=== PATIENT | male | born 1945 | race Caucasian/White ===

== ENCOUNTER 2016-10-15 22:18 | Emergency (ER) | payer MEDICARE, OTHER ==
[~2016-10-15] VITALS: Ht 172.7 cm; Wt 79.0 kg
[2016-10-15 22:20] VITALS: BP 101/59; PULSE 78; RESP 16; TEMP 97.9; O2SAT 94
[2016-10-15] MEDS ORDERED: WARF-58 PO (22:39)
[2016-10-15] MEDS ORDERED: VITA-83 PO (22:39)
[2016-10-15] MEDS ORDERED: BACL10TA PO (22:39)
[2016-10-15] MEDS ORDERED: FURO1TAB60 PO (22:39)
[2016-10-15] MEDS ORDERED: RANI150T PO (22:39)
[2016-10-15] MEDS ORDERED: WARF-60 PO (22:39)
[2016-10-15] MEDS ORDERED: POTA75TA (22:39)
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
[2016-10-15 23:24] LABS: BACTERIA, URINE OCC /hpf; BLOOD, URINE TRACE (NEG); GLUCOSE,URINE NEG (NEG); KETONE, URINE NEG (NEG); MUCUS URINE FEW /lpf (OCC); NITRITE,URINE NEG (NEG); RENAL EPITHELIAL CELLS 1 /hpf; URINE COLOR YELLOW (YELLW/STRAW)
[2016-10-15 23:27] LABS: COMMENT (UR) CATH-CULTURE IND; CULTURE IF INDICATED CATH CULTURE IND
[2016-10-15] MEDS ORDERED: MACR100C2 PO (23:36)
--- NOTE | 2016-10-15 23:39 | PD ---
Physical Exam Date Seen by Provider: Oct 15, 2016 Time Seen by Provider: 23:00 Narrative The patient was initially seen by KEMAL Franklin. The patient had a catheter that was leaking. We did replace the catheter and we're awaiting urinalysis. Data Data Last Documented VS Vital Signs Date Time Temp Pulse Resp B/P Pulse Ox O2 Delivery O2 Flow Rate FiO2 10/15/16 22:20 97.9 78 16 101/59 94 Orders Urinary Catheter - Remove (10/15/16 22:35) Urinary Catheter Insert/Apply (10/15/16 22:35) Urinalysis - C+S If Indicated (10/15/16 22:39) Urine Culture (10/15/16 23:00) Labs Laboratory Tests Test 10/15/16 23:00 Urine Color YELLOW Urine Turbidity HAZY Urine pH 5.0 Urine Specific [place] 1.012 Urine Protein NEG mg/dL Urine Glucose (UA) NEG mg/dL Urine Ketones NEG mg/dL Urine Occult Blood TRACE Urine Nitrite NEG Urine Bilirubin NEG Urine Urobilinogen LESS THAN 2.0 MG/DL Urine Leukocyte Esterase LARGE Urine RBC 2 /hpf Urine WBC 12 /hpf Urine WBC Clumps FEW Urine Renal Epithelial Cells 1 /hpf Urine Amorphous Sediment RARE Urine Bacteria OCC /hpf Urine Mucus FEW /lpf Microscopic Urinalysis Comment CATH-CULTURE IND MDM Medical Record Reviewed: Yes Supervised Visit with PATRICIA: Yes Differential Diagnosis Malfunction urinary catheter versus UTI versus Narrative Course 71 year-old gentleman with history of spinal cord injury, who has an indwelling catheter presents with complaints of leaking catheter. The patient also has a urinalysis that was showing a UTI. We have replaced the catheter with no cough medications. He'll be given a prescription for Macrobid for his UTI. He is instructed to return if he develops any worsening symptoms i.e. Diagnosis Primary Impression: Malfunction of indwelling urinary catheter Additional Impression: Urinary tract infection Med/Other Pt SpecificInfo: Prescription(s) given Scripts Nitrofurantoin Monohydrate Macrocrystals (Macrobid)100 Mg [id number] Mg PO BID #14 CAP Ref 0 Prov:Andrea Bueno MD 10/15/16 Disposition: 01 DISCHARGE HOME Condition: Stable Andrea Bueno MD Oct 15, 2016 23:39
== END 2016-10-15 23:42 | disposition home or self-care (01) ==
LOC: NEPE 22:18
DX: T83.198A Other mechanical complication of other urinary devices and implants, initial encounter (principal); Z87.891 Personal history of nicotine dependence; B96.5 Pseudomonas (aeruginosa) (mallei) (pseudomallei) as the cause of diseases classified elsewhere; R82.90 Unspecified abnormal findings in urine
CPT/HCPCS: 51702; 81001; 87077; 87086; 87186

== ENCOUNTER 2016-10-29 03:28 | Emergency (ER) | payer OTHER ==
[~2016-10-29] VITALS: Ht 182.9 cm; Wt 118.0 kg
[~2016-10-29 03:28] MED LIST: BACL10TA PO; FURO1TAB60 PO; MACR100C2 PO; POTA75TA; RANI150T PO; VITA-83 PO; WARF-58 PO; WARF-60 PO
[2016-10-29 03:51] VITALS: BP 90/57; PULSE 64; RESP 18; TEMP 97.8; O2SAT 97
[2016-10-29] MEDS ORDERED: VITA1000 PO (04:06)
[2016-10-29] MEDS ORDERED: POTA-163 PO (04:06)
[2016-10-29 04:57] VITALS: BP 113/77; PULSE 65; RESP 20; O2SAT 95
[2016-10-29 05:43] LABS: GLUCOSE,URINE NEG (NEG); KETONE, URINE NEG (NEG)
[2016-10-29 05:44] LABS: BLOOD, URINE MOD (NEG); NITRITE,URINE POS (NEG)
[2016-10-29 05:46] LABS: METHOD OF COLLECTION CATH
[2016-10-29 05:47] LABS: URINE COLOR STRAW (YELLW/STRAW)
[2016-10-29 05:48] LABS: BACTERIA, URINE FEW /hpf
[2016-10-29 05:49] LABS: COMMENT (UR) CULTURE INDICATED; CULTURE IF INDICATED CULTURE INDICATED
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
[2016-10-29] MEDS ORDERED: LEVOFLOXACIN 500 MG TAB PO ONE (06:00)
[2016-10-29] MEDS ORDERED: CEPH-460 PO (07:15)
== END 2016-10-29 08:46 | disposition home or self-care (01) ==
LOC: PHED 03:28
DX: T83.011A Breakdown (mechanical) of indwelling urethral catheter, initial encounter (principal); T83.511A Infection and inflammatory reaction due to indwelling urethral catheter, initial encounter; B96.5 Pseudomonas (aeruginosa) (mallei) (pseudomallei) as the cause of diseases classified elsewhere; B37.89 Other sites of candidiasis; Z79.01 Long term (current) use of anticoagulants; Z89.511 Acquired absence of right leg below knee; Z86.69 Personal history of other diseases of the nervous system and sense organs; Z86.79 Personal history of other diseases of the circulatory system; Z86.718 Personal history of other venous thrombosis and embolism
CPT/HCPCS: 51700; 81001; 87077; 87086; 87186

== ENCOUNTER 2016-11-08 02:24 | Emergency (ER) | payer OTHER ==
[~2016-11-08] VITALS: Ht 182.9 cm; Wt 115.0 kg
[~2016-11-08 02:24] MED LIST changes: +CEPH-460 PO; -MACR100C2 PO; +POTA-163 PO; -POTA75TA; -VITA-83 PO; +VITA1000 PO
[2016-11-08 02:27] VITALS: BP 94/56; PULSE 82; RESP 16; TEMP 98.2; O2SAT 95
[2016-11-08 02:35] VITALS: BP 94/56; PULSE 83; RESP 16; TEMP 98.2; O2SAT 93
[2016-11-08] MEDS ORDERED: SODIUM CHLORID 0.9% 500 ML INJ 500 ML IV ONE (03:45)
[2016-11-08 04:00] VITALS: BP 119/59; PULSE 76; RESP 22; O2SAT 92
[2016-11-08 04:29] LABS: AUTOMATED NEUTROPHIL # 9.3 TH/MM3 (1.8-7.7); BASOPHIL # 0.1 TH/MM3 (0-0.2); BASOPHIL % 0.6 % (0.0-2.0); EOSINOPHIL # 0.1 TH/MM3 (0-0.4); EOSINOPHIL % 1.2 % (0.0-4.0); HEMATOCRIT 33.3 % (39.0-51.0); LYMPH % 10.8 % (9.0-44.0); LYMPHOCYTE # 1.3 TH/MM3 (1.0-4.8); MEAN CELL VOLUME 74.6 FL (80.0-100.0); MEAN CORPUSCULAR HEMOGLOBIN 23.1 PG (27.0-34.0); NEUT % 77.4 % (16.0-70.0); PLATELET COUNT 235 TH/MM3 (150-450); RED BLOOD COUNT 4.47 MIL/MM3 (4.50-5.90); RED CELL DISTRIBUTION WIDTH 18.5 % (11.6-17.2)
[2016-11-08 04:30] LABS: HEMO FLAGS AUTO DIFF
[2016-11-08 04:41] LABS: BACTERIA, URINE MANY /hpf; BLOOD, URINE MOD (NEG); COMMENT (UR) CULTURE INDICATED; CULTURE IF INDICATED CULTURE INDICATED; GLUCOSE,URINE NEG (NEG); KETONE, URINE NEG (NEG); MUCUS URINE MANY /lpf (OCC); NITRITE,URINE POS (NEG); PH, URINE 5.5 (5.0-8.5); URINE COLOR YELLOW (YELLW/STRAW)
[2016-11-08 04:58] LABS: BICARBONATE 29.3 MEQ/L (21.0-32.0); POTASSIUM 3.8 MEQ/L (3.5-5.1)
[2016-11-08 05:00] VITALS: BP 119/53; PULSE 72; RESP 14; O2SAT 92
[2016-11-08 05:22] LABS: OVALOCYTES 2+ (NORMAL); SCAN/DIFF AUTO DIFF CONFIRMED
[2016-11-08] MEDS ORDERED: CIPROFLOXACIN 400 MG PREMIX 200 ML IV ONE (05:30)
[2016-11-08 06:04] VITALS: BP 116/69; PULSE 76; RESP 16; O2SAT 96
[2016-11-08] MEDS ORDERED: CEFT500T3 PO (06:19)
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
[2016-11-08 06:54] VITALS: BP 116/87
== END 2016-11-08 09:28 | disposition home or self-care (01) ==
LOC: NEPE 02:24
DX: T83.011A Breakdown (mechanical) of indwelling urethral catheter, initial encounter (principal); N39.0 Urinary tract infection, site not specified; R33.8 Other retention of urine; B96.5 Pseudomonas (aeruginosa) (mallei) (pseudomallei) as the cause of diseases classified elsewhere; Z79.01 Long term (current) use of anticoagulants
CPT/HCPCS: 51702; 80048; 81001; 85025; 87077; 87086; 87186; 96361; 96365; 99283; J0744; J7040

== ENCOUNTER 2016-11-19 08:48 | Emergency (ER) | payer OTHER ==
[~2016-11-19] VITALS: Ht 182.9 cm; Wt 118.0 kg
[~2016-11-19 08:48] MED LIST changes: +CEFT500T3 PO
[2016-11-19 08:50] VITALS: BP 113/76; PULSE 64; RESP 18; TEMP 98; O2SAT 94
--- NOTE | 2016-11-19 09:20 | PD ---
HPI Chief Complaint: Certified Medical Coder Problem Time Seen by Provider: 09:15 Travel History International Travel<30 days: No Contact w/Intl Traveler<30days: No Traveled to known affect area: No History of Present Illness HPI Patient presents with concerns of decreased urine in his Gonzalez catheter bag. Reports decreased fluid intake in the last 14 hours. Denies any nausea vomiting diarrhea or fever. Denies any new chest pain shortness of breath or bowel symptoms. Able to take fluids without complication. PFSH Past Medical History Hx Anticoagulant Therapy: Yes (COUMADIN) AAA: Yes Cardiac Catheterization: Yes Cardiovascular Problems: Yes (CASSIDY; STENT X1) Cerebrovascular Accident: Yes (CVA 2005) Diminished Hearing: No Neurologic: Yes (spinal cord injury) Immunizations Current: Yes Past Surgical History Abdominal Aneurysm Repair: Yes Cardiac Surgery: Yes (stent placement) Coronary Stent: Yes Other Surgery: Yes (RIGHT BKA OCTOBER 2016 SECONDARY TO INFECTION ) Social History Alcohol Use: No Tobacco Use: No (former) Substance Use: No Allergies-Medications (Allergen,Severity, Reaction): Coded Allergies: No Known Allergies (Unverified , 11/19/16) Reported Meds & Prescriptions Reported Meds & Active Scripts Active Levaquin (Levofloxacin) 250 Mg Tab 250 Mg PO DAILY Ceftin (Cefuroxime Axetil) 500 Mg Tab 500 Mg PO BID 10 Days Keflex (Cephalexin) 500 Mg Cap 500 Mg PO Q6H 10 Days Reported Potassium Chloride ER (Potassium Chloride) 20 Meq Tab 20 Meq PO DAILY Vitamin D-1000 (Cholecalciferol) 1,000 Unit Tab 1,000 Units PO DAILY Ranitidine (Ranitidine HCl) 150 Mg Tab 150 Mg PO DAILY Lasix (Furosemide) 40 Mg Tab 40 Mg PO DAILY Baclofen 10 Mg Tab 10 Mg PO TID Warfarin 6 Mg Tab 6 Mg PO DAILY PRN Warfarin 3 Mg Tab 3 Mg PO DAILY PRN Review of Systems General / Constitutional: No: Fever Eyes: No: Visual changes HENT: No: Headaches Cardiovascular: No: Chest Pain or Discomfort Respiratory: No: Shortness of Breath Gastrointestinal: No: Abdominal Pain Genitourinary: Positive: Decreased Urinary Output, No: Dysuria Musculoskeletal: No: Pain Skin: No Rash Neurologic: No: Weakness Psychiatric: No: Depression Endocrine: No: Polydipsia Hematologic/Lymphatic: No: Easy Bruising Physical Exam Narrative GENERAL: Well-nourished, well-developed patient. Wheelchair-bound SKIN: Focused skin assessment warm/dry. HEAD: Normocephalic. EYES: No scleral icterus. No injection or drainage. NECK: Supple, trachea midline. No JVD or lymphadenopathy. CARDIOVASCULAR: Regular rate and rhythm without murmurs, gallops, or rubs. RESPIRATORY: Breath sounds equal bilaterally. No accessory muscle use. GASTROINTESTINAL: Abdomen soft, non-tender, nondistended. MUSCULOSKELETAL: No cyanosis, right BKA Urine noted in the output bag and tubing, concentrated Data Data Last Documented VS Vital Signs Date Time Temp Pulse Resp B/P Pulse Ox O2 Delivery O2 Flow Rate FiO2 11/19/16 08:50 98.0 64 18 113/76 94 Orders Urinalysis - C+S If Indicated (11/19/16 09:16) Urine Culture (11/19/16 09:20) Labs Laboratory Tests Test 11/19/16 09:20 Urine Collection Type CATH Urine Color YELLOW Urine Turbidity MOD Urine pH 6.0 Urine Specific [place] 1.021 Urine Protein 30 mg/dL Urine Glucose (UA) NEG mg/dL Urine Ketones NEG mg/dL Urine Occult Blood LARGE Urine Nitrite POS Urine Bilirubin NEG Urine Leukocyte Esterase LARGE Urine RBC 15-19 /hpf Urine WBC 100-200 /hpf Urine WBC Clumps MOD Urine Squamous Epithelial 0-5 /hpf Cells Urine Amorphous Sediment MOD Urine Bacteria MOD /hpf Microscopic Urinalysis Comment CATH-CULTURE IND Urine Collection Time 0920 [facility] Medical Decision Making Medical Screen Exam Complete: Yes Emergency Medical Condition: Yes Differential Diagnosis UTI, decreased urinary output, certified medical biller malfunction Narrative Course Assessment and plan discussed with patient at bedside. Patient provided liquids to drink without complication. Most recent urine culture grew out Pseudomonas with high susceptibility. Diagnosis Primary Impression: Urinary tract infection Qualified Code: T83.511A - Urinary tract infection associated with indwelling urethral catheter, initial encounter Patient Instructions: General Instructions Additional Instructions: Encourage fluids and a cranberry supplementation, encouraged to follow-up with urology or PCP. Culture pending. Oral anabiotic's as prescribed. Med/Other Pt SpecificInfo: Prescription(s) given Scripts Levofloxacin (Levaquin)250 Mg [id number] Mg PO DAILY #7 TAB Ref 0 Prov:David Delgado MD 11/19/16 Disposition: 01 DISCHARGE HOME Condition: Good David Delgado MD Nov 19, 2016 09:20
[2016-11-19 09:29] LABS: BLOOD, URINE LARGE (NEG); GLUCOSE,URINE NEG (NEG); KETONE, URINE NEG (NEG); NITRITE,URINE POS (NEG)
[2016-11-19 09:30] LABS: METHOD OF COLLECTION CATH; URINE COLOR YELLOW (YELLW/STRAW)
[2016-11-19 09:35] LABS: BACTERIA, URINE MOD /hpf; CULTURE IF INDICATED CATH CULTURE IND; RBC, URINE 15-19 /hpf (0-3); WBC, URINE 100-200 /hpf (0-5)
[2016-11-19 09:36] LABS: COMMENT (UR) CATH-CULTURE IND; COMMENT2 (UR) MUCOUS PRESENT; SQUAMOUS EPITHELIAL CELL URINE 0-5 /hpf (0-5)
[2016-11-19] MEDS ORDERED: LEVA250T PO (10:25)
== END 2016-11-19 10:39 | disposition home or self-care (01) ==
LOC: PHED 08:48
DX: T83.511A Infection and inflammatory reaction due to indwelling urethral catheter, initial encounter (principal); N39.0 Urinary tract infection, site not specified; B96.5 Pseudomonas (aeruginosa) (mallei) (pseudomallei) as the cause of diseases classified elsewhere
CPT/HCPCS: 81001; 87077; 87086; 87186; 99283

== ENCOUNTER 2016-12-07 14:12 | Inpatient (IN) | payer OTHER, MEDICARE ==
[~2016-12-07] VITALS: Ht 182.9 cm; Wt 126.9 kg
[~2016-12-07 14:12] MED LIST changes: +LEVA250T PO
[2016-12-07 14:15] VITALS: BP 99/66; PULSE 77; RESP 20; TEMP 97.7; O2SAT 91
[2016-12-07 16:24] LABS: MEAN CORPUSCULAR HGB CONC 29.7 % (32.0-36.0)
[2016-12-07] MEDS ORDERED: DIATRIZOATE MEGLUM/DIATRIZOATE SOD 9 ML CUP ONE (16:28)
[2016-12-07] MEDS ORDERED: DIATRIZOATE MEGLUM/DIATRIZOATE SOD 9 ML CUP PO ONE (16:30)
[2016-12-07] MEDS ORDERED: SODIUM CHLORIDE 0.9% FLUSH 10 ML FLUSH IV FLUSH PRN ×2 (16:30→20:15)
[2016-12-07 16:37] VITALS: RESP 18; O2SAT 95
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
--- NOTE | 2016-12-07 16:54 | RADRPT ---
EXAM DATE/TIME: 12/07/2016 16:35 [facility] COMPARISON: No previous studies available for comparison. INDICATIONS : Constipation and abdominal pain. MEDICAL HISTORY : None. SURGICAL HISTORY : Abdominal aortic aneurysm repair. ENCOUNTER: Initial ACUITY: 4 - 6 days PAIN SCORE: 4/10 LOCATION: Bilateral upper quadrant abdomen. FINDINGS: AP erect and supine views of the abdomen were obtained and demonstrate gas and stool noted segmentall y in the colon. There are multiple loops of nondilated air-containing small bowel several small air-f luid levels on the erect film. There is no free air. Aortic stent catheter is noted in place. There i s inferior vena caval filter is well. The lung bases appear clear. CONCLUSION: Nonspecific, nonobstructive bowel gas pattern with moderate amount of stool throughou t the colon. Shabbir Ulloa MD on December 07, 2016 at 16:51 Board Certified Radiologist. This report was verified electronically.
[2016-12-07 17:07] LABS: AUTOMATED NEUTROPHIL # 3.1 TH/MM3 (1.8-7.7); BASOPHIL % 0.3 % (0.0-2.0); EOSINOPHIL # 0.3 TH/MM3 (0-0.4); EOSINOPHIL % 5.4 % (0.0-4.0); HEMATOCRIT 37.7 % (39.0-51.0); LYMPHOCYTE # 1.2 TH/MM3 (1.0-4.8); MEAN CELL VOLUME 73.2 FL (80.0-100.0); MEAN CORPUSCULAR HEMOGLOBIN 21.7 PG (27.0-34.0); MONO % 12.1 % (0.0-8.0); NEUT % 59.2 % (16.0-70.0); PLATELET COUNT 243 TH/MM3 (150-450); RED BLOOD COUNT 5.15 MIL/MM3 (4.50-5.90); RED CELL DISTRIBUTION WIDTH 20.1 % (11.6-17.2); WHITE BLOOD COUNT 5.2 TH/MM3 (4.0-11.0)
[2016-12-07 17:11] LABS: HEMO FLAGS AUTO DIFF
[2016-12-07 17:29] LABS: APTT (PATIENT) 50.2 SEC (24.3-30.1); INTERNATIONAL NORMALIZED RATIO 4.3 RATIO; PROTHROMBIN TIME - PATIENT 50.7 SEC (9.8-11.6)
[2016-12-07 17:31] LABS: ALKALINE PHOSPHATASE 79 U/L (45-117); ALT (GPT) 14 U/L (12-78); ANION GAP 6 MEQ/L (5-15); AST (GOT) 21 U/L (15-37); BICARBONATE 34.3 MEQ/L (21.0-32.0); BLOOD UREA NITROGEN 11 MG/DL (7-18); CHLORIDE 102 MEQ/L (98-107); GLOMERULAR FILTRATION RATE 101 ML/MIN (>89); POTASSIUM 4.2 MEQ/L (3.5-5.1); SODIUM (NA) 142 MEQ/L (136-145); TOTAL BILIRUBIN ADULT 0.4 MG/DL (0.2-1.0)
--- NOTE | 2016-12-07 18:23 | RADRPT ---
EXAM DATE/TIME: 12/07/2016 18:09 [facility] COMPARISON: No previous studies available for comparison. INDICATIONS : Fell a week ago ,evaluate for bleed. RADIATION DOSE: 54.41 CTDIvol (mGy) MEDICAL HISTORY : Cerebrovascular disease. Cardiovascular disease SURGICAL HISTORY : Abdominal aortic aneurysm repair. Coronary artery stent.neck for fracture ENCOUNTER: Initial ACUITY: 4 - 6 days PAIN SCALE: 5/10 LOCATION: cranial TECHNIQUE: Multiple contiguous axial images were obtained of the head. Using automated exposure control and adj ustment of the mA and/or kV according to patient size, radiation dose was kept as low as reasonably a chievable to obtain optimal diagnostic quality images. FINDINGS: There is an approximate 5-6 mm intraparenchymal hemorrhage in the left frontal lobe with a tiny 2-3 mm punctate petechial hemorrhage in the left mid parietal white matter tracts. No extra-axial hem orrhage or mass effect is seen. Slight degree of brain atrophy is seen. Slight periventricular white matter changes are seen nonspecific mostly consistent with chronic small vessel ischemic changes. No definite signs of acute infarction is identified. CONCLUSION: Tiny areas of intraparenchymal hemorrhage in the left frontal and parietal lobes without any mass eff ect. KCarolina Echavarria MD on December 07, 2016 at 18:19 Board Certified Radiologist. This report was verified electronically.
--- NOTE | 2016-12-07 18:35 | PD ---
Physical Exam Date Seen by Provider: Dec 07, 2016 Data Data Last Documented VS Vital Signs Date Time Temp Pulse Resp B/P Pulse Ox O2 Delivery O2 Flow Rate FiO2 12/07/16 16:37 18 95 Room Air 12/07/16 14:15 97.7 77 99/66 Orders Complete Blood Count With Diff (12/07/16 16:21) Comprehensive Metabolic Panel (12/07/16 16:21) Lipase (12/07/16 16:21) Lactic Acid (12/07/16 16:21) Prothrombin Time / Inr (Pt) (12/07/16 16:21) Act Partial Throm Time (Ptt) (12/07/16 16:21) Abdomen, Flat & Upright (12/07/16 ) Ct Abd/Pel W Iv Contrast(Rout) (12/07/16 16:21) Iv Access Insert/Monitor (12/07/16 16:21) Ecg Monitoring (12/07/16 16:21) Oximetry (12/07/16 16:21) Sodium Chloride 0.9% Flush (Ns Flush) (12/07/16 16:30) Electrocardiogram (12/07/16 16:21) Ct Cerv Spine W/O Contrast (12/07/16 ) Ct Brain W/O Iv Contrast(Rout) (12/07/16 ) Diatrizoate Liq ( Gastroview Liq) (12/07/16 16:30) Diatrizoate Liq ( Gastroview Liq) (12/07/16 16:28) Oral Contrast - Adult (12/07/16 16:30) Iohexol 350 Inj (Omnipaque 350 Inj) (12/07/16 18:49) Lactulose Liq (Lactulose Liq) (12/07/16 19:45) Mineral Oil Enema (Fleet Mineral Oil Alethea (12/07/16 19:45) Blood Culture (12/07/16 20:01) Ceftriaxone Inj (Rocephin Inj) (12/07/16 20:15) Azithromycin Inj (Zithromax Inj) (12/07/16 20:15) Labs Laboratory Tests Test 12/07/16 16:35 White Blood Count 5.2 TH/MM3 Red Blood Count 5.15 MIL/MM3 Hemoglobin 11.2 GM/DL Hematocrit 37.7 % Mean Corpuscular Volume 73.2 FL Mean Corpuscular Hemoglobin 21.7 PG Mean Corpuscular Hemoglobin 29.7 % Concent Red Cell Distribution Width 20.1 % Platelet Count 243 TH/MM3 Mean Platelet Volume 8.2 FL Neutrophils (%) (Auto) 59.2 % Lymphocytes (%) (Auto) 23.0 % Monocytes (%) (Auto) 12.1 % Eosinophils (%) (Auto) 5.4 % Basophils (%) (Auto) 0.3 % Neutrophils # (Auto) 3.1 TH/MM3 Lymphocytes # (Auto) 1.2 TH/MM3 Monocytes # (Auto) 0.6 TH/MM3 Eosinophils # (Auto) 0.3 TH/MM3 Basophils # (Auto) 0.0 TH/MM3 CBC Comment AUTO DIFF Differential Comment AUTO DIFF CONFIRMED Platelet Estimate NORMAL Platelet Morphology Comment NORMAL Ovalocytes 2+ Prothrombin Time 50.7 SEC Prothromb Time International 4.3 RATIO Ratio Activated Partial 50.2 SEC Thromboplast Time Sodium Level 142 MEQ/L Potassium Level 4.2 MEQ/L Chloride Level 102 MEQ/L Carbon Dioxide Level 34.3 MEQ/L Anion Gap 6 MEQ/L Blood Urea Nitrogen 11 MG/DL Creatinine 0.76 MG/DL Estimat Glomerular Filtration 101 ML/MIN Rate Random Glucose 81 MG/DL Lactic Acid Level 1.0 mmol/L Calcium Level 9.0 MG/DL Total Bilirubin 0.4 MG/DL Aspartate Amino Transf 21 U/L (AST/SGOT) Alanine Aminotransferase 14 U/L (ALT/SGPT) Alkaline Phosphatase 79 U/L Total Protein 8.4 GM/DL Albumin 3.0 GM/DL Lipase 76 U/L [facility] Medical Record Reviewed: Yes Supervised Visit with PATRICIA: No Differential Diagnosis Vital Signs Date Time Temp Pulse Resp B/P Pulse Ox O2 Delivery O2 Flow Rate FiO2 12/07/16 16:37 18 95 Room Air 12/07/16 15:43 17 12/07/16 14:15 97.7 77 20 99/66 91 Room Air Last Impressions Abdomen/Pelvis CT 12/07/16 1621 Signed Impressions: Service Date/Time: November 18:23 - CONCLUSION: Slight bibasilar filtrate, otherwise chronic and benign changes. Tod Echavarria MD Head CT 12/07/16 0000 Signed Impressions: Service Date/Time: November 18:09 - CONCLUSION: Tiny areas of intraparenchymal hemorrhage in the left frontal and parietal lobes without any mass effect. Tod Echavarria MD Cervical Spine CT 12/07/16 0000 Signed Impressions: Service Date/Time: November 18:09 - CONCLUSION: Chronic changes without any significant compromise to the thecal sac or the exiting nerve roots. Tod Echavarria MD Abdomen X-Ray 12/07/16 0000 Signed Impressions: Service Date/Time: November 16:35 - CONCLUSION: Nonspecific, nonobstructive bowel gas pattern with moderate amount of stool throughout the colon. Shabbir Ulloa MD CBC & BMP Diagram 12/07/16 16:35 Narrative Course Please see previous provider's chart for full workup Patient was signed out to me by Dr. Zhong. Patient pending ct of the abdomen and pelvis and final disposition of patient. Patient is a pleasant 71-year-old male with history of paraplegia and recent right sided BKA, presents to ER with complaints of 5 days of constipation and abdominal distention. Reports mild to moderate cramping to abdomen - patient usually responds with rectal stimulation of pain - reports no relief today with symptoms. Ct pending Vital Signs Date Time Temp Pulse Resp B/P Pulse Ox O2 Delivery O2 Flow Rate FiO2 12/07/16 16:37 18 95 Room Air 12/07/16 15:43 17 12/07/16 14:15 97.7 77 20 99/66 91 Room Air CBC WBC 5.2 Hemoglobin 11.2 Hematocrit 37.7 Platelets 243 BMP Sodium 142 Chloride 102 Potassium 4.2 Carbon dioxide 34.3 BUN 11 Creatinine 0.76 Lipase 76 Lactic acid 1.0 PT 50.7 PTT 50.2 INR 4.3 Last Impressions Abdomen/Pelvis CT 12/07/16 1621 Signed Impressions: Service Date/Time: November 18:23 - CONCLUSION: Slight bibasilar filtrate, otherwise chronic and benign changes. Tod Echavarria MD Head CT 12/07/16 0000 Signed Impressions: Service Date/Time: November 18:09 - CONCLUSION: Tiny areas of intraparenchymal hemorrhage in the left frontal and parietal lobes without any mass effect. Tod Echavarria MD Cervical Spine CT 12/07/16 0000 Signed Impressions: Service Date/Time: November 18:09 - CONCLUSION: Chronic changes without any significant compromise to the thecal sac or the exiting nerve roots. Tod Echavarria MD Abdomen X-Ray 12/07/16 0000 Signed Impressions: Service Date/Time: November 16:35 - CONCLUSION: Nonspecific, nonobstructive bowel gas pattern with moderate amount of stool throughout the colon. Shabbir Ulloa MD INR 4.3, ct of head with tiny areas of intraparenchymal hemorrhage. Patient reports that he fell on November [address] in [place], reports that he flew out of his wheelchair and hit his head. at that time, he did go to the ER and was kept overnight, reports that he was told that he had a small bleed in his brain and reports that the repeat ct the next day did not show any bigger bleed so patient was discharged to home. Report no headaches at this time. IRN 4.3. Call to Dr. Sylvester, to review case. Patient also with slight bibasilar infiltrates to lower lobes of lungs - reports that he is coughing. Denies fever /chills. Plan to obtain blood cultures and treat for pneumonia Case reviewed with Dr. Sylvester - plan to monitor patient, plan to possibly recheck ct scan of head and observing patient Critical Care Narrative Aggregate critical care time was 30 minutes. Time to perform other separately billable procedures was not included in the critical care time. My time did not include minutes spent treating any other patients simultaneously or on activities that did not directly contribute to the patient's treatment. The services I provided to this patient were to treat and/or prevent clinically significant deterioration that could result in: , decompensation, deterioration I provided critical care services requiring my management, as noted below: Chart data review, documentation time, medication orders and management, vital sign assessments/reviewing monitor data, ordering and reviewing lab tests, ordering and interpreting/reviewing x-rays and diagnostic studies, care of the patient and discussion of the patient with the admitting physicians. Physician Communication Physician Communication case reviewed with Dr. Sylvester case reviewed with Dr. Nuñez who accepts patient to service Diagnosis Primary Impression: Intraparenchymal hemorrhage of brain Additional Impressions: Pneumonia Qualified Code: J18.9 - Pneumonia of both lower lobes due to infectious organism Supratherapeutic INR Constipation Qualified Code: K59.00 - Constipation, unspecified constipation type Admitting Information Admitting Physician Requests: Admit Rhonda Arnold DO Dec 07, 2016 18:35
[2016-12-07 18:41] LABS: OVALOCYTES 2+ (NORMAL); PLATELET ESTIMATE SMEAR NORMAL (NORMAL); PLATELET MORPHOLOGY NORMAL (NORMAL); SCAN/DIFF AUTO DIFF CONFIRMED
[2016-12-07] MEDS ORDERED: IOHEXOL 350 MG/ML 10 ML VIAL (for RAD DIAG) IV ONE (18:49)
--- NOTE | 2016-12-07 18:55 | RADRPT ---
EXAM DATE/TIME: 12/07/2016 18:09 [facility] COMPARISON: No previous studies available for comparison. INDICATIONS : Fall, injury to neck region. RADIATION DOSE: 22.00 CTDIvol (mGy) MEDICAL HISTORY : Cardiovascular disease. Cerebrovascular disease. Paraplegic, CVA SURGICAL HISTORY : Abdominal aortic aneurysm repair. Cardiac stent. neck surgery for fracture ENCOUNTER: Initial ACUITY: 3 days PAIN SCALE: 5/10 LOCATION: neck TECHNIQUE: Volumetric scanning of the cervical spine was performed. Multiplanar reconstructions in the sagittal, coronal and oblique axial planes were performed. Using automated exposure control and adjustment o f the mA and/or kV according to patient size, radiation dose was kept as low as reasonably achievable to obtain optimal diagnostic quality images. FINDINGS: No evidence of subluxation. No definite fracture is seen for technique. C2-C3: There is no evidence for any significant compromise to the thecal sac, or the exiting nerve roots. N o appreciable thecal sac stenosis is seen. The neural foramina and lateral recess appear patent bila terally. C3-C4: There is no evidence for any significant compromise to the thecal sac, or the exiting nerve roots. N o appreciable thecal sac stenosis is seen. The neural foramina and lateral recess appear patent bila terally. C4-C5: There is no evidence for any significant compromise to the thecal sac, or the exiting nerve roots. N o appreciable thecal sac stenosis is seen. The neural foramina and lateral recess appear patent bila terally. C5-C6: Surgical screws traverse the bodies of C5 and C6 with a plate placed anteriorly and evidence for ante rior fusion. Slight hypertrophic changes are seen with indentation on the thecal sac and no significa nt compromise to the thecal sac or the exiting nerve roots. The neural foramina are grossly patent bi laterally. C6-C7: Significant degenerative changes are seen within the disc space and facets. Slight bulging disc and h ypertrophic changes are seen with indentation on the thecal sac and no significant compromise to the thecal sac or the exiting nerve roots. C7-T1: There is no evidence for any significant compromise to the thecal sac, or the exiting nerve roots. N o appreciable thecal sac stenosis is seen. The neural foramina and lateral recess appear patent bila terally. CONCLUSION: Chronic changes without any significant compromise to the thecal sac or the exiting nerve roots. Tod Echavarria MD on December 07, 2016 at 18:49 Board Certified Radiologist. This report was verified electronically.
--- NOTE | 2016-12-07 19:15 | RADRPT ---
EXAM DATE/TIME: 12/07/2016 18:23 [facility] COMPARISON: No previous studies available for comparison. INDICATIONS : Abdomen pain and distention for one week. IV CONTRAST: 70 cc Omnipaque 350 (iohexol) IV ORAL CONTRAST: Prescribed oral contrast ingested. RADIATION DOSE: 16.62 CTDIvol (mGy) MEDICAL HISTORY : Cerebrovascular disease. Cardiovascular disease Paraplegic frature neck SURGICAL HISTORY : Abdominal aortic aneurysm repair. Coronary artery stent.Neck surgery ENCOUNTER: Initial ACUITY: 4 - 6 days PAIN SCALE: 5/10 LOCATION: Abdomen TECHNIQUE: Volumetric scanning of the abdomen and pelvis was performed. Using automated exposure control and ad justment of the mA and/or kV according to patient size, radiation dose was kept as low as reasonably achievable to obtain optimal diagnostic quality images. FINDINGS: CT Abdomen: The liver, spleen, pancreas, kidneys, adrenals are unremarkable. There is no evidence for any appreciable pathological adenopathy, free fluid, or bowel obstruction. Slight bibasilar atelecta sis and/or infiltrate is seen. Coronary artery calcifications are seen typically seen with CAD and ne ed to be evaluated clinically. aortobiiliac stent is identified and the [place] AAA sac measures 5.4 x 6.2 cm in AP and transverse diameters without evidence for endovascular leak. CT pelvis: There is no evidence for mass, abscess formation, or any significant adenopathy within the pelvis. The prostate gland is inhomogeneous and measures 5.4 x 6.2 cm in AP and transverse diameters and nonspecific. There is gas within the bladder from Gonzalez catheter in place. There is moderate carolyn unt of stool throughout the colon. CONCLUSION: Slight bibasilar filtrate, otherwise chronic and benign changes. Tod Echavarria MD on December 07, 2016 at 19:05 Board Certified Radiologist. This report was verified electronically.
[2016-12-07] MEDS ORDERED: MINERAL OIL ENEMA 118 ML BTL RECTAL ONE (19:45)
[2016-12-07] MEDS ORDERED: LACTULOSE SYRUP 20 GM/30 ML CUP PO ONE (19:45)
[2016-12-07] MEDS ORDERED: LEVOFLOXACIN 750 MG TAB PO ONE (20:00)
[2016-12-07] MEDS ORDERED: cefTRIAXone INJ 1,000 MG in SODIUM CHLORIDE 0.9% INJ 100 ML IV ONE (20:15)
[2016-12-07] MEDS ORDERED: NALOXONE HCL 0.4 MG/ML AMP IV PRN (20:15)
[2016-12-07] MEDS ORDERED: AZITHROMYCIN INJ 500 MG in SODIUM CHLOR 0.9% 250 ML INJ 250 ML IV ONE (20:15)
[2016-12-07] MEDS ORDERED: PHYTONADIONE 10 MG/ML VIAL SQ ONE (20:30)
--- NOTE | 2016-12-07 20:59 | EKG ---
Date Performed: 12/07/2016 Time Performed: 17:01:38 PTAGE: 71 years EKG: Sinus rhythm NORMAL ECG NO PREVIOUS TRACING DOCTOR: David Carroll Interpretating Date/Time 12/07/2016 20:57:58
[2016-12-07] MEDS: SODIUM CHLORIDE 0.9% FLUSH 10 ML FLUSH IV FLUSH SCH (21:48)
[2016-12-07 22:30] VITALS: BP 102/68; PULSE 69; RESP 18; TEMP 97.9; O2SAT 95
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
[2016-12-08] VITALS (11 sets, daily range): BP systolic 99–176; BP diastolic 58–77; PULSE 55–78; RESP 16–19; TEMP 96.1–98.2; O2SAT 94–97
[2016-12-08 06:04] LABS: AUTOMATED NEUTROPHIL # 3.6 TH/MM3 (1.8-7.7); BASOPHIL % 0.6 % (0.0-2.0); EOSINOPHIL # 0.3 TH/MM3 (0-0.4); EOSINOPHIL % 5.1 % (0.0-4.0); HEMATOCRIT 32.2 % (39.0-51.0); LYMPH % 20.9 % (9.0-44.0); LYMPHOCYTE # 1.2 TH/MM3 (1.0-4.8); MEAN CELL VOLUME 72.3 FL (80.0-100.0); MEAN CORPUSCULAR HEMOGLOBIN 22.6 PG (27.0-34.0); MEAN CORPUSCULAR HGB CONC 31.2 % (32.0-36.0); MONO % 10.7 % (0.0-8.0); NEUT % 62.7 % (16.0-70.0); PLATELET COUNT 208 TH/MM3 (150-450); RED BLOOD COUNT 4.44 MIL/MM3 (4.50-5.90); RED CELL DISTRIBUTION WIDTH 19.6 % (11.6-17.2); WHITE BLOOD COUNT 5.8 TH/MM3 (4.0-11.0)
[2016-12-08 06:08] LABS: HEMO FLAGS AUTO DIFF
[2016-12-08 06:19] LABS: BICARBONATE 34.7 MEQ/L (21.0-32.0); POTASSIUM 3.6 MEQ/L (3.5-5.1)
[2016-12-08 06:49] LABS: OVALOCYTES 1+ (NORMAL); PLATELET ESTIMATE SMEAR NORMAL (NORMAL); PLATELET MORPHOLOGY NORMAL (NORMAL); SCAN/DIFF AUTO DIFF CONFIRMED
[2016-12-08] MEDS: BACLOFEN 10 MG TAB PO SCH ×3 (07:42→17:07)
[2016-12-08] MEDS: POTASSIUM CHLORIDE 20 MEQ CONTROLLED RELEASE TAB PO SCH (07:42)
[2016-12-08] MEDS: FUROSEMIDE 40 MG TAB PO SCH (07:42)
[2016-12-08] MEDS: FAMOTIDINE 20 MG TAB PO SCH (07:42)
[2016-12-08] MEDS: LEVOFLOXACIN 750 MG PREMIX INJ 150 ML IV SCH (07:43)
[2016-12-08] MEDS: SODIUM CHLORIDE 0.9% FLUSH 10 ML FLUSH IV FLUSH SCH ×2 (07:48→19:47)
[2016-12-08] MEDS ORDERED: DOCUSATE SODIUM 50 MG/SENNA 8.6 MG TAB PO PRN (11:00)
[2016-12-08] MEDS ORDERED: BISACODYL 10 MG SUPP RECTAL PRN (11:00)
[2016-12-08] MEDS ORDERED: MAGNESIUM HYDROXIDE SUSP 30 ML CUP PO PRN (11:00)
--- NOTE | 2016-12-08 11:55 | HHI.PR ---
Subjective Remarks Pt states that he still hasn't had a BM. Denies any CP/SOB/N/V Frustrated about not having a BM, tells me that he has had that in the past but never for that long. He tells me that he doesn't take narcotics. Cough is improved, no fevers or chills Objective Vitals Vital Signs Date Time Temp Pulse Resp B/P Pulse Ox O2 Delivery O2 Flow Rate FiO2 12/08/16 11:27 97.3 62 19 149/74 95 12/08/16 07:40 96.7 75 19 141/69 94 12/08/16 06:00 98.1 64 17 113/68 97 12/08/16 05:45 98.0 66 16 107/63 94 12/08/16 03:30 98.2 64 16 99/58 95 12/08/16 03:30 98.2 64 16 99/58 95 12/08/16 01:55 97.9 64 16 110/62 95 12/08/16 01:40 97.8 68 17 106/58 94 12/07/16 22:30 97.9 69 18 102/68 95 12/07/16 16:37 18 95 Room Air 12/07/16 15:43 17 12/07/16 14:15 97.7 77 20 99/66 91 Room Air I/O 12/07/16 12/07/16 12/07/16 12/08/16 12/08/16 12/08/16 07:00 15:00 23:00 07:00 15:00 23:00 Intake Total 480 ml Output Total 1600 ml 950 ml Balance -1600 ml -470 ml Intake Oral 480 ml Output Urine Total 1600 ml 950 ml # Voids 0 # Bowel Movements 0 Result Diagram: 12/08/16 0500 12/08/16 0500 Imaging Last Impressions Abdomen/Pelvis CT 12/07/16 1621 Signed Impressions: Service Date/Time: November 18:23 - CONCLUSION: Slight bibasilar filtrate, otherwise chronic and benign changes. Tod Echavarria MD Head CT 12/07/16 0000 Signed Impressions: Service Date/Time: November 18:09 - CONCLUSION: Tiny areas of intraparenchymal hemorrhage in the left frontal and parietal lobes without any mass effect. Tod Echavarria MD Cervical Spine CT 12/07/16 0000 Signed Impressions: Service Date/Time: November 18:09 - CONCLUSION: Chronic changes without any significant compromise to the thecal sac or the exiting nerve roots. Tod Echavarria MD Abdomen X-Ray 12/07/16 0000 Signed Impressions: Service Date/Time: November 16:35 - CONCLUSION: Nonspecific, nonobstructive bowel gas pattern with moderate amount of stool throughout the colon. Shabbir Ulloa MD Objective Remarks GENERAL: This is a well-nourished, well-developed patient, in no apparent distress. CARDIOVASCULAR: Regular rate and rhythm without murmurs RESPIRATORY: Clear to auscultation. Breath sounds equal bilaterally. No wheezes GASTROINTESTINAL: Abdomen soft, obese, nondistended. No guarding. MUSCULOSKELETAL: left lower extremity w edema 1+. 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 No purulent discharge. NEUROLOGICAL: Awake and alert. Motor and sensory grossly within normal limits. Normal speech. A/P Problem List: (1) Pneumonia ICD Code: J18.9 Status: Acute (2) Supratherapeutic INR ICD Code: R79.1 Status: Acute (3) Intraparenchymal hemorrhage of brain ICD Code: I61.9 Status: Acute (4) Constipation ICD Code: K59.00 Status: Acute Assessment and Plan Constipation Bibasilar infiltrateswith reports of coughlikely pneumonia in a patient who was recently admitted to hospital about 3 weeks ago for right BKA Intraparenchymal hemorrhagein a patient on chronic anticoagulation Supratherapeutic INR 2000 Minor heart attack- s/p stent AAA - stent placed- 2013 or 2014 RLE DVT - on coumadin ivc filter - 2005 CVA osteomyelitis of RLE - s/p Right BKA - about 2 or 3 weeks ago Plan: Patient received multiple regimen for constipation in ER. added miralax daily, and prn autumn-colace, milk of mag and dulcolax suppository At this point, we would await for medications to work If no improvement, would consider GoLYTELY prep. As to his bibasilar infiltrates, he is currently being treated for pneumonia given that he is also having cough and also was hospitalized recently. continue levofloxacin 750 mg IV every 24 hours and will transition to PO upon discharge. As far as the intraparenchymal hemorrhage, he was evaluated by neurosurgery. No surgical intervention at this point. Patient is clinically stable. No acute deficits. INR was found to be supratherapeutic and was given Vit K and FFP 2 units. Pt w hx of anticoagulation of DVT and has IVC filter already placed Repeat head CT in about 24 hours or prior to discharge. Hold Coumadin for now and monitor INR closely. on his home medications. Discharge Planning awaiting final recs from neurosx. and awaiting resolution of constipation Problem Qualifiers (1) Pneumonia: Qualified Code: J18.9 - Pneumonia of both lower lobes due to infectious organism (2) Constipation: Qualified Code: K59.00 - Constipation, unspecified constipation type Vianey Monet MD Dec 08, 2016 11:55
--- NOTE | 2016-12-08 13:01 | RADRPT ---
EXAM DATE/TIME: 12/08/2016 12:09 [facility] COMPARISON: CT BRAIN W/O CONTRAST, December 07, 2016, 18:09. INDICATIONS : Follow up intracranial hemorrahage. RADIATION DOSE: 48.04 CTDIvol (mGy) MEDICAL HISTORY : Cardiovascular disease. SURGICAL HISTORY : None. ENCOUNTER: Subsequent ACUITY: 1 week PAIN SCALE: 2/10 LOCATION: Bilateral cranial TECHNIQUE: Multiple contiguous axial images were obtained of the head. Using automated exposure control and adj ustment of the mA and/or kV according to patient size, radiation dose was kept as low as reasonably a chievable to obtain optimal diagnostic quality images. FINDINGS: CEREBRUM: The ventricles are normal for age. No evidence of midline shift, mass lesion, or acute infarction. T he 2 tiny areas of high density in the left frontal and parietal lobes are not significantly changed. There is no new hemorrhage. No extra-axial fluid collections are seen. POSTERIOR FOSSA: The cerebellum and brainstem are intact. The 4th ventricle is midline. The cerebellopontine angle i s unremarkable. EXTRACRANIAL: The visualized portion of the orbits is intact. SKULL: The calvaria is intact. No evidence of skull fracture. CONCLUSION: 1. No significant change in the 2 tiny focal areas of increased density most consistent with hemorrha ge. 2. No new hemorrhage or mass effect. Shabbir Ulloa MD on December 08, 2016 at 12:50 Board Certified Radiologist. This report was verified electronically.
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
[2016-12-09] VITALS: BP 139/64; PULSE 73; RESP 16; TEMP 97.7; O2SAT 99
[2016-12-09 04:00] VITALS: BP 103/62; PULSE 62; RESP 17; TEMP 96.5; O2SAT 95
[2016-12-09 07:33] VITALS: BP 142/81; PULSE 68; RESP 19; TEMP 97.4; O2SAT 93
[2016-12-09 07:58] LABS: INTERNATIONAL NORMALIZED RATIO 1.6 RATIO; PROTHROMBIN TIME - PATIENT 18.6 SEC (9.8-11.6)
[2016-12-09] MEDS: LEVOFLOXACIN 750 MG PREMIX INJ 150 ML IV SCH (08:41)
[2016-12-09] MEDS: SODIUM CHLORIDE 0.9% FLUSH 10 ML FLUSH IV FLUSH SCH (08:41)
[2016-12-09] MEDS: POTASSIUM CHLORIDE 20 MEQ CONTROLLED RELEASE TAB PO SCH (08:42)
[2016-12-09] MEDS: FAMOTIDINE 20 MG TAB PO SCH (08:42)
[2016-12-09] MEDS: FUROSEMIDE 40 MG TAB PO SCH (08:42)
[2016-12-09] MEDS: BACLOFEN 10 MG TAB PO SCH ×2 (08:42→14:25)
[2016-12-09 08:45] VITALS: PULSE 78
[2016-12-09] MEDS ORDERED: POLYETHYLENE GLYCOL 17 GM PKG PO SCH (09:00)
[2016-12-09] MEDS ORDERED: PERI8.6T PO (11:10)
[2016-12-09] MEDS ORDERED: LEVA750T PO (11:10)
--- NOTE | 2016-12-09 11:15 | HHI.DCPOC ---
Discharge Care Plan Diagnosis: (1) Pneumonia (2) Supratherapeutic INR (3) Intraparenchymal hemorrhage of brain (4) Chronic anticoagulation Goals to Promote Your Health * To prevent worsening of your condition and complications * To maintain your health at the optimal level Directions to Meet Your Goals Take your medications as prescribed Follow your dietary instruction Follow activity as directed Keep your appointments as scheduled Take your immunizations and boosters as scheduled If your symptoms worsen call your PCP, if no PCP go to Urgent Care Center or Emergency Room Smoking is Dangerous to Your Health. Avoid second hand smoke Call the 24-hour hour crisis hotline for domestic abuse at Vianey Monet MD Dec 09, 2016 11:15
--- NOTE | 2016-12-09 11:22 | HHI.DS ---
Discharge Summary Admission Date Dec 07, 2016 at 20:18 Discharge Date: Dec 09, 2016 Admitting Diagnosis Intracranial hemorrhage, pneumonia, supratherapeutic INR (1) Pneumonia ICD Code: J18.9 Diagnosis: Principal (2) Supratherapeutic INR ICD Code: R79.1 Diagnosis: Principal (3) Intraparenchymal hemorrhage of brain ICD Code: I61.9 Diagnosis: Principal (4) Constipation ICD Code: K59.00 Diagnosis: Principal Procedures none Brief History - From Admission History from patient, your physician communication, and review of medical records. Patient reported that he came to the hospital because he was having constipation for the past 6 days. He also reports of bloating and right lower quadrant abdominal pain which is quite mild. States he was having chills at night. He does have an indwelling Gonzalez catheter. This was changed in our hospital today.. He stated he did not notice any particular sediments or cloudiness in his urine. Patient reports of mild headaches once or twice in the past one week. Denies any nausea/vomiting/dizziness/near syncopal episodes. He does however report of an episode of falling from his wheelchair on October 09, 2016. Reports he did not pass out. However he did hit his head at that time and was evaluated at a hospital in [place]. He stated he broke his nasal bone and did have bleeding in his brain which was not significant. He states he had a repeat CT within a few days after the bleed and he was cleared to continue with his anticoagulation. He denies any new falls or trauma since September. Patient moved to [facility] about 3 weeks ago together with his daughter and her children. He states he continues to take Coumadin as prescribed. His INR today is 4.3. Incidentally, he had a CT brain done in ER today which reveals intraparenchymal hemorrhage which is mild. Patient was evaluated by neurosurgery in emergency room. CBC/BMP: 12/08/16 0500 12/08/16 0500 Significant Findings Laboratory Tests Test 12/07/16 12/08/16 12/09/16 16:35 05:00 06:50 Hemoglobin 11.2 GM/DL 10.0 GM/DL (13.0-17.0) (13.0-17.0) Hematocrit 37.7 % 32.2 % (39.0-51.0) (39.0-51.0) Mean Corpuscular Volume 73.2 FL 72.3 FL (80.0-100.0) (80.0-100.0) Mean Corpuscular Hemoglobin 21.7 PG 22.6 PG (27.0-34.0) (27.0-34.0) Mean Corpuscular Hemoglobin 29.7 % 31.2 % Concent (32.0-36.0) (32.0-36.0) Red Cell Distribution Width 20.1 % 19.6 % (11.6-17.2) (11.6-17.2) Monocytes (%) (Auto) 12.1 % 10.7 % (0.0-8.0) (0.0-8.0) Eosinophils (%) (Auto) 5.4 % (0.0-4.0) 5.1 % (0.0-4.0) Ovalocytes 2+ (NORMAL) 1+ (NORMAL) Prothrombin Time 50.7 SEC 18.6 SEC (9.8-11.6) (9.8-11.6) Activated Partial 50.2 SEC Thromboplast Time (24.3-30.1) Carbon Dioxide Level 34.3 MEQ/L 34.7 MEQ/L (21.0-32.0) (21.0-32.0) Total Protein 8.4 GM/DL (6.4-8.2) Albumin 3.0 GM/DL (3.4-5.0) Red Blood Count 4.44 MIL/MM3 (4.50-5.90) Anion Gap 4 MEQ/L (5-15) Imaging Last Impressions Head CT 12/08/16 1200 Signed Impressions: Service Date/Time: Thursday, December 08, 2016 12:09 - CONCLUSION: 1. No significant change in the 2 tiny focal areas of increased density most consistent with hemorrhage. 2. No new hemorrhage or mass effect. Shabbir Ulloa MD Abdomen/Pelvis CT 12/07/16 1621 Signed Impressions: Service Date/Time: November 18:23 - CONCLUSION: Slight bibasilar filtrate, otherwise chronic and benign changes. Tod Echavarria MD Cervical Spine CT 12/07/16 0000 Signed Impressions: Service Date/Time: November 18:09 - CONCLUSION: Chronic changes without any significant compromise to the thecal sac or the exiting nerve roots. Tod Echavarria MD Abdomen X-Ray 12/07/16 0000 Signed Impressions: Service Date/Time: November 16:35 - CONCLUSION: Nonspecific, nonobstructive bowel gas pattern with moderate amount of stool throughout the colon. Shabbir Ulloa MD PE at Discharge GENERAL: This is a well-nourished, well-developed patient, in no apparent distress. CARDIOVASCULAR: Regular rate and rhythm without murmurs RESPIRATORY: Clear to auscultation. Breath sounds equal bilaterally. No wheezes GASTROINTESTINAL: Abdomen soft, obese, nondistended. No guarding. MUSCULOSKELETAL: left lower extremity w edema 1+. 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 No purulent discharge. NEUROLOGICAL: Awake and alert. Motor and sensory grossly within normal limits. Normal speech. Pt update on day of discharge Patient finally had a large bowel movement. He states he wishes that he could go one more time. He denies any chest pain, shortness of breath, nausea or vomiting. Patient is frustrated with his living situation currently. Hospital Course Patient received multiple regimen for constipation in ER. Patient received multiple bowel regimens including miralax daily, and prn thalia-colace, milk of mag and dulcolax suppository. Patient has been counseled to take stool softener /laxative daily since he is now having multiple instances of constipation. Patient admits that he doesn't take any stool softeners at home. Patient is frustrated because he is not able to have bowel movements regularly lately. I again reassured patient that with daily stool softeners this will help. He can always stop taking them if he starts having too many bowel movements. he is currently being treated for pneumonia given that he is also having cough and also was hospitalized recently. continue levofloxacin 750 mg po for 5 more days. Prescription in chart As far as the intraparenchymal hemorrhage, he was evaluated by neurosurgery. No surgical intervention at this point. He has been cleared per neurosurgery for discharge INR was found to be supratherapeutic and was given Vit K and FFP 2 units. INR today 1.6. Pt w hx of anticoagulation of DVT and has IVC filter already placed. Repeat CT was stable Patient to repeat his INR in 2 days. Follow up with his primary care doctor for management of his Coumadin. Pt Condition on Discharge: Stable Discharge Disposition: Discharge Home Discharge Time: > 30 minutes Discharge Instructions DIET: Follow Instructions for: Heart Healthy Diet Activities you can perform: Regular-No Restrictions Follow up Referrals: Physician - 2-3 Days New Orders: PT/INR - 2 Days New Medications: Levofloxacin (Levaquin) 750 Mg Tab 750 MG PO DAILY Infection #5 Ref 0 TAB Sennosides-Docusate Sodium (Thalia-Colace) 8.6-50 Mg Tab 1 TAB PO BID PRN Constipation #60 Ref 0 TAB Continued Medications: Baclofen (Baclofen) 10 Mg Tab 10 MG PO TID Muscle Spasm Ref 0 TAB Cholecalciferol (Vitamin D-1000) 1,000 Unit Tab 1000 UNITS PO DAILY Nutritional Supplement #1 Ref 0 BOTTLE Furosemide (Lasix) 40 Mg Tab 40 MG PO DAILY #30 Ref 0 TAB Potassium Chloride ER (Potassium Chloride ER) 20 Meq Tab 20 MEQ PO DAILY Electrolyte Replacement #30 Ref 0 TAB Ranitidine (Ranitidine) 150 Mg Tab 150 MG PO DAILY Heartburn Management #30 Ref 0 TAB Warfarin (Warfarin) 3 Mg Tab 3 MG PO DAILY PRN sunday #30 Ref 0 TAB Warfarin (Warfarin) 6 Mg Tab 6 MG PO DAILY PRN sunday #30 Ref 0 TAB Vianey Monet MD Dec 09, 2016 11:22
[2016-12-09 11:58] VITALS: BP 103/65; PULSE 70; RESP 19; TEMP 96.1; O2SAT 93
== END 2016-12-09 15:21 | disposition home or self-care (01) | DRG 193 ==
LOC: NEPD 14:12 → NEDA 20:18 → N06B 22:13
PROVIDERS: ADMIT Hospitalist; ATTEND Hospitalist
PROC: 30233K1 Transfusion of Nonautologous Frozen Plasma into Peripheral Vein, Percutaneous Approach (ICD-10-PCS; principal; 2016-12-08)
DX: J18.9 Pneumonia, unspecified organism (principal); I61.9 Nontraumatic intracerebral hemorrhage, unspecified; G82.20 Paraplegia, unspecified; G50.0 Trigeminal neuralgia; K59.00 Constipation, unspecified; R79.1 Abnormal coagulation profile; I25.10 Atherosclerotic heart disease of native coronary artery without angina pectoris; E66.9 Obesity, unspecified; Z86.718 Personal history of other venous thrombosis and embolism; Z79.01 Long term (current) use of anticoagulants; Z89.511 Acquired absence of right leg below knee; Z95.5 Presence of coronary angioplasty implant and graft; Z68.37 Body mass index [BMI] 37.0-37.9, adult
CPT/HCPCS: 36430; 70450; 72125; 74020; 74177; 80048; 80053; 83605; 83690; 85025; 85610; 85730; 86900; 86901; 86927; 87040; 93005; J0456; J0696; J1956; J3430; J7050; P9017; Q9963; Q9967

== ENCOUNTER 2016-12-12 01:52 | Emergency (ER) | payer OTHER ==
[~2016-12-12] VITALS: Ht 180.3 cm; Wt 126.0 kg
[~2016-12-12 01:52] MED LIST changes: -CEFT500T3 PO; -CEPH-460 PO; -LEVA250T PO; +LEVA750T PO; +PERI8.6T PO
[2016-12-12 01:53] VITALS: BP 141/76; PULSE 63; RESP 20; TEMP 97.9; O2SAT 95
[2016-12-12] MEDS ORDERED: WARF-20 PO (02:16)
[2016-12-12 02:59] VITALS: BP 203/112; PULSE 76; RESP 18; TEMP 98; O2SAT 93; O2SAT 95
[2016-12-12 03:17] LABS: AUTOMATED NEUTROPHIL # 5.1 TH/MM3 (1.8-7.7); BASOPHIL % 0.4 % (0.0-2.0); EOSINOPHIL # 0.2 TH/MM3 (0-0.4); EOSINOPHIL % 3.1 % (0.0-4.0); HEMATOCRIT 36.1 % (39.0-51.0); LYMPH % 17.3 % (9.0-44.0); LYMPHOCYTE # 1.3 TH/MM3 (1.0-4.8); MEAN CELL VOLUME 73.3 FL (80.0-100.0); MEAN CORPUSCULAR HEMOGLOBIN 22.3 PG (27.0-34.0); MEAN CORPUSCULAR HGB CONC 30.4 % (32.0-36.0); MONO % 10.8 % (0.0-8.0); NEUT % 68.4 % (16.0-70.0); PLATELET COUNT 176 TH/MM3 (150-450); RED BLOOD COUNT 4.92 MIL/MM3 (4.50-5.90); RED CELL DISTRIBUTION WIDTH 19.6 % (11.6-17.2); WHITE BLOOD COUNT 7.5 TH/MM3 (4.0-11.0)
[2016-12-12 03:18] LABS: HEMO FLAGS AUTO DIFF
[2016-12-12 03:21] VITALS: BP 92/52; PULSE 72; RESP 18; O2SAT 94
[2016-12-12 03:23] LABS: APTT (PATIENT) 29.4 SEC (24.3-30.1); INTERNATIONAL NORMALIZED RATIO 1.1 RATIO; PROTHROMBIN TIME - PATIENT 12.1 SEC (9.8-11.6)
[2016-12-12 03:40] LABS: BICARBONATE 31.4 MEQ/L (21.0-32.0); POTASSIUM 3.8 MEQ/L (3.5-5.1)
[2016-12-12 03:41] LABS: BLOOD, URINE MOD (NEG); COMMENT (UR) CULTURE INDICATED; CULTURE IF INDICATED CULTURE INDICATED; GLUCOSE,URINE TRACE mg/dL (NEG); KETONE, URINE NEG (NEG); NITRITE,URINE NEG (NEG); URINE COLOR YELLOW (YELLW/STRAW)
[2016-12-12 03:52] LABS: OVALOCYTES 1+ (NORMAL); PLATELET ESTIMATE SMEAR NORMAL (NORMAL); PLATELET MORPHOLOGY NORMAL (NORMAL); SCAN/DIFF AUTO DIFF CONFIRMED
--- NOTE | 2016-12-12 04:26 | PD ---
HPI Chief Complaint: Complaint Time Seen by Provider: 02:17 Travel History International Travel<30 days: No Contact w/Intl Traveler<30days: No Traveled to known affect area: No History of Present Illness HPI The patient is a 71 year old male who presents to the [facility] emergency department with a history of awakening with the sensation of pain in his lower abdomen prior to arrival. The patient noticed that he was having blood in his Gonzalez catheter. He reports that prior to going to bed he did not have any bleeding. The patient reports that he felt like he was not evacuating his bladder, thus he came to the emergency department. He reports he was just discharged from the hospital 2 days ago. He reports that he is on Coumadin related to a history of right lower extremity DVT. The patient also reports that recently of proximal a 4-5 weeks ago he had a right below the knee amputation. The patient's recent admission was related to an intracranial hemorrhage with a supratherapeutic INR, and pneumonia. The patient is unsure whether he accidentally pulled on his catheter prior to awakening with this pain. A review of systems, the patient denies having any fevers since discharge , worsening cough or congestion, neck pain, chest pain, worsening shortness of breath, vomiting, diarrhea, or new neurologic symptoms. [facility] Past Medical History Narrative Medical The patient's past medical history is significant for having a minor heart attack in 2000 with a stent placed, history of an abdominal aortic aneurysm repair with a stent, history of right lower extremity DVT, chronically anticoagulated on Coumadin, history of an inferior vena cava filter placement, history of a prior stroke, history of osteomyelitis of the right lower extremity status post right BKA. Hx Anticoagulant Therapy: Yes (COUMADIN) AAA: Yes Cardiac Catheterization: Yes Cardiovascular Problems: Yes (CASSIDY; STENT X1) Cerebrovascular Accident: Yes (CVA 2005) Diminished Hearing: No Neurologic: Yes (spinal cord injury) Immunizations Current: Yes Tetanus Vaccination: Unknown Influenza Vaccination: Yes Past Surgical History Narrative Surgical The patient's past surgical history is significant for a right BKA, cardiac catheterization with stent placement, abdominal aortic aneurysm repair, neck surgery. Abdominal Aneurysm Repair: Yes Cardiac Surgery: Yes (stent placement) Coronary Stent: Yes Other Surgery: Yes (RIGHT BKA OCTOBER 2016 SECONDARY TO INFECTION ) Social History Alcohol Use: No Tobacco Use: No (former) Substance Use: No Allergies-Medications (Allergen,Severity, Reaction): Coded Allergies: No Known Allergies (Unverified , 12/12/16) Reported Meds & Prescriptions Reported Meds & Active Scripts Active Levaquin (Levofloxacin) 750 Mg Tab 750 Mg PO DAILY Thalia-Colace (Sennosides-Docusate Sodium) 8.6-50 Mg Tab 1 Tab PO BID PRN Reported Warfarin 4 Mg Tab 4 Mg PO DAILY Potassium Chloride ER (Potassium Chloride) 20 Meq Tab 20 Meq PO DAILY Vitamin D-1000 (Cholecalciferol) 1,000 Unit Tab 1,000 Units PO DAILY Ranitidine (Ranitidine HCl) 150 Mg Tab 150 Mg PO DAILY Lasix (Furosemide) 40 Mg Tab 40 Mg PO DAILY Baclofen 10 Mg Tab 10 Mg PO TID Review of Systems Except as stated in HPI: all other systems reviewed are Neg General / Constitutional: No: Fever Eyes: No: Visual changes HENT: No: Headaches Cardiovascular: No: Chest Pain or Discomfort Respiratory: No: Shortness of Breath Gastrointestinal: Positive: Abdominal Pain, No: Nausea, Vomiting, Diarrhea, Changes in Bowel Habits, Indigestion, Loss of Appetite Genitourinary: Positive: Hematuria, No: Dysuria Musculoskeletal: No: Pain Skin: No Rash Neurologic: No: Weakness, Change in Mentation, Slurred Speech, Sensory Disturbance Psychiatric: No: Depression Endocrine: No: Polydipsia Hematologic/Lymphatic: No: Easy Bruising Physical Exam Narrative General: The patient is a well-developed well-nourished male in no acute distress. Head and Neck exam: Head is normocephalic atraumatic. Eyes: EOMI, pupils are equal round and reactive to light. Nose: Midline septum with pink mucous membranes Mouth: Dentition unremarkable. Moist mucus membranes. Posterior oropharynx is not erythematous. No tonsillar hypertrophy. Uvula midline. Airway patent. Neck: No palpable lymphadenopathy. No nuchal rigidity. No thyromegaly. Cardiovascular: Regular rate and rhythm without murmurs, gallops, or rubs. Lungs: Clear to auscultation bilaterally. No wheezes, rhonchi, or rales. Abdomen: Soft, with tenderness on palpation of the suprapubic area, no other tenderness on palpation of the other 4 quadrants of the abdomen. Normal bowel sounds are audible. No tenderness on palpation of McBurney's point. No guarding, rebound , or rigidity. Negative Costello's sign. The patient is noted to have a Gonzalez catheter in place with bloody urine noted in the tubing. Extremities: No clubbing or cyanosis. The patient has 1-2+ pitting edema bilateral lower extremities. The patient has a right below the knee amputation that appears to be healing well. Back: No spinous process tenderness to palpation. No costovertebral angle tenderness to palpation. Neurologic Exam: Nonfocal. Skin Exam: No rash noted. Intact skin that is warm and dry. Data Data Last Documented VS Vital Signs Date Time Temp Pulse Resp B/P Pulse Ox O2 Delivery O2 Flow Rate FiO2 12/12/16 03:21 72 18 92/52 94 Room Air 12/12/16 01:53 97.9 Orders Urinalysis - C+S If Indicated (12/12/16 02:18) Urinary Catheter Insert/Apply (12/12/16 02:18) Complete Blood Count With Diff (12/12/16 02:50) Basic Metabolic Panel (Bmp) (12/12/16 02:50) Prothrombin Time / Inr (Pt) (12/12/16 02:50) Act Partial Throm Time (Ptt) (12/12/16 02:50) Iv Access Insert/Monitor (12/12/16 02:50) Ecg Monitoring (12/12/16 02:50) Oximetry (12/12/16 02:50) Urine Culture (12/12/16 02:54) Labs Laboratory Tests Test 12/12/16 12/12/16 02:54 03:02 Urine Color YELLOW Urine Turbidity HAZY Urine pH 7.0 Urine Specific [place] 1.039 Urine Protein GREATER THAN 600 mg/dL Urine Glucose (UA) TRACE mg/dL Urine Ketones NEG mg/dL Urine Occult Blood MOD Urine Nitrite NEG Urine Bilirubin NEG Urine Urobilinogen LESS THAN 2.0 MG/DL Urine Leukocyte Esterase NEG Urine RBC /hpf Urine WBC 139 /hpf Microscopic Urinalysis Comment CULTURE INDICATED White Blood Count 7.5 TH/MM3 Red Blood Count 4.92 MIL/MM3 Hemoglobin 11.0 GM/DL Hematocrit 36.1 % Mean Corpuscular Volume 73.3 FL Mean Corpuscular Hemoglobin 22.3 PG Mean Corpuscular Hemoglobin 30.4 % Concent Red Cell Distribution Width 19.6 % Platelet Count 176 TH/MM3 Mean Platelet Volume 8.3 FL Neutrophils (%) (Auto) 68.4 % Lymphocytes (%) (Auto) 17.3 % Monocytes (%) (Auto) 10.8 % Eosinophils (%) (Auto) 3.1 % Basophils (%) (Auto) 0.4 % Neutrophils # (Auto) 5.1 TH/MM3 Lymphocytes # (Auto) 1.3 TH/MM3 Monocytes # (Auto) 0.8 TH/MM3 Eosinophils # (Auto) 0.2 TH/MM3 Basophils # (Auto) 0.0 TH/MM3 CBC Comment AUTO DIFF Differential Comment AUTO DIFF CONFIRMED Platelet Estimate NORMAL Platelet Morphology Comment NORMAL Ovalocytes 1+ Prothrombin Time 12.1 SEC Prothromb Time International 1.1 RATIO Ratio Activated Partial 29.4 SEC Thromboplast Time Sodium Level 142 MEQ/L Potassium Level 3.8 MEQ/L Chloride Level 105 MEQ/L Carbon Dioxide Level 31.4 MEQ/L Anion Gap 6 MEQ/L Blood Urea Nitrogen 19 MG/DL Creatinine 0.82 MG/DL Estimat Glomerular Filtration 93 ML/MIN Rate Random Glucose 97 MG/DL Calcium Level 8.7 MG/DL MDM Medical Decision Making Medical Screen Exam Complete: Yes Emergency Medical Condition: Yes Medical Record Reviewed: Yes Differential Diagnosis Supratherapeutic INR, versus accidental trauma while sleeping, versus infection with hemorrhagic cystitis Narrative Course During the course of the patients emergency department visit, the patients history, examination, and differential diagnosis were reviewed with the patient. The patient had IV access obtained and blood work sent for analysis. The patient's Gonzalez catheter was replaced. The patient bladder was irrigated area the patient had good flow of urine and reportedly felt improved. The patient slept during the conclusion of his evaluation. The patients laboratory studies were reviewed and remarkable for a white count of 7.5, hemoglobin 11, platelets 176 with 10.8 monocytes, BNP is remarkable for a BUN of 19, glucose is 97, PT is 12.1, PTT 29.4, urinalysis shows elevated specific gravity at 1.039, moderate occult blood, wbc's 139, innumerable rbc's. The patient continued to have good urine flow. I suspect that the patient accidentally traumatized the catheter and pulled on it causing the hematuria. The patient was instructed to follow-up with his urologist for reexamination this week. The patient is resting comfortably and feels better, is alert and in no distress. The patients results and examination findings were discussed with the patient. The repeat examination is unremarkable and benign. The history, exam, diagnostic testing, and current condition do not suggest any significant pathology to warrant further testing, continued ED treatment, admission, or surgical evaluation at this point. The vital signs have been stable. The patient does not have uncontrollable pain, intractable vomiting, or other significant symptoms. The patient's condition is stable and appropriate for discharge. The patient will pursue further outpatient evaluation with a primary care physician or other designated or consulting physician as indicated in the discharge instructions. The patient expressed understanding and was agreeable with this plan. Diagnosis Primary Impression: Hematuria Additional Impression: Chronic anticoagulation Referrals: Primary Care Physician 3 days Urologist 2 days Patient Instructions: General Instructions, Hematuria (ED) Med/Other Pt SpecificInfo: No Change to Meds Disposition: 01 DISCHARGE HOME Condition: Stable Marla Rushing MD December 12, 2016 04:26
== END 2016-12-12 04:42 | disposition home or self-care (01) ==
LOC: NEPE 01:52
DX: R31.9 Hematuria, unspecified (principal); Z79.01 Long term (current) use of anticoagulants; Z86.718 Personal history of other venous thrombosis and embolism; Z89.511 Acquired absence of right leg below knee
CPT/HCPCS: 51700; 80048; 81001; 85025; 85610; 85730; 87086

== ENCOUNTER 2016-12-12 16:29 | Emergency (ER) | payer OTHER ==
[~2016-12-12] VITALS: Ht 182.9 cm; Wt 120.0 kg
[~2016-12-12 16:29] MED LIST changes: +WARF-20 PO
[2016-12-12 16:31] VITALS: BP 115/68; PULSE 78; RESP 15; TEMP 97.6; O2SAT 95
--- NOTE | 2016-12-12 16:37 | PD ---
Physical Exam Time Seen by Provider: 16:35 Narrative 71 y/o male here for evaluation of hematuria. Seen last night for same. Vital signs reviewed. Seen at triage desk. Awaiting bed placement. Data Data Last Documented VS Vital Signs Date Time Temp Pulse Resp B/P Pulse Ox O2 Delivery O2 Flow Rate FiO2 12/12/16 16:31 97.6 78 15 115/68 95 MDM Medical Record Reviewed: Yes Supervised Visit with PATRICIA: Jose Lyon December 12, 2016 16:37
--- NOTE | 2016-12-12 19:09 | PD ---
HPI Chief Complaint: Complaint Time Seen by Provider: 16:42 Travel History International Travel<30 days: No Contact w/Intl Traveler<30days: No Traveled to known affect area: No History of Present Illness HPI 71-year-old male with a history of paraplegia presents to the emergency department for some blood in his Gonzalez catheter. He has a chronic indwelling Gonzalez catheter. He was seen last night for hematuria and obstruction. He is not sure he pulled it during his sleep or not. He otherwise has been doing well. He started having bleeding again today and felt like he needs to void but can't. PFSH Past Medical History Hx Anticoagulant Therapy: Yes (COUMADIN) AAA: Yes Cardiac Catheterization: Yes Cardiovascular Problems: Yes (CASSIDY; STENT X1) Cerebrovascular Accident: Yes (CVA 2005) Diminished Hearing: No Neurologic: Yes (spinal cord injury) Immunizations Current: Yes Tetanus Vaccination: < 5 Years Influenza Vaccination: Yes ?: Not Past Surgical History Abdominal Aneurysm Repair: Yes Cardiac Surgery: Yes (stent placement) Coronary Stent: Yes Other Surgery: Yes (RIGHT BKA OCTOBER 2016 SECONDARY TO INFECTION ) Social History Alcohol Use: No Tobacco Use: No (former) Substance Use: No Allergies-Medications (Allergen,Severity, Reaction): Coded Allergies: No Known Allergies (Unverified , 12/12/16) Reported Meds & Prescriptions Reported Meds & Active Scripts Active Levaquin (Levofloxacin) 750 Mg Tab 750 Mg PO DAILY Thalia-Colace (Sennosides-Docusate Sodium) 8.6-50 Mg Tab 1 Tab PO BID PRN Reported Warfarin 4 Mg Tab 4 Mg PO DAILY Potassium Chloride ER (Potassium Chloride) 20 Meq Tab 20 Meq PO DAILY Vitamin D-1000 (Cholecalciferol) 1,000 Unit Tab 1,000 Units PO DAILY Ranitidine (Ranitidine HCl) 150 Mg Tab 150 Mg PO DAILY Lasix (Furosemide) 40 Mg Tab 40 Mg PO DAILY Baclofen 10 Mg Tab 10 Mg PO TID Review of Systems Except as stated in HPI: all other systems reviewed are Neg Physical Exam Narrative GENERAL: 71-year-old man, paraplegic, right BKA. NECK: Trachea midline. No JVD. CARDIOVASCULAR: Regular rate and rhythm. No murmur appreciated. RESPIRATORY: No accessory muscle use. Clear to auscultation. Breath sounds equal bilaterally. GASTROINTESTINAL: Abdomen soft, non-tender, nondistended. Hepatic and splenic margins not palpable. MUSCULOSKELETAL: No obvious deformities. Data Data Last Documented VS Vital Signs Date Time Temp Pulse Resp B/P Pulse Ox O2 Delivery O2 Flow Rate FiO2 12/12/16 16:42 18 12/12/16 16:31 97.6 78 115/68 95 Orders Ed Poc Ultrasound (12/12/16 ) MDM Medical Decision Making Medical Screen Exam Complete: Yes Emergency Medical Condition: Yes Differential Diagnosis Obstruction, hematuria, fully catheter blockage, other Narrative Course Medical decision making 71-year-old male with gross hematuria. The bladder was just and irrigated with 2 L of sterile saline by myself using sterile technique. Bladder then lavaged clear. A lot of clots were extracted. Patient was observed for 2 hours in the emergency department with clear urine and no recurrence of bleeding. Procedures Procedure Narrative Point of care ultrasound: Focus transabdominal ultrasounds performed by me at the bedside to evaluate for urinary retention. Bladder was identified, Gonzalez catheter was seen, there is no significant retention. Diagnosis Primary Impression: Malfunction of indwelling urinary catheter Additional Instructions: Continue Gonzalez catheter care as directed. Drink plenty of fluids to keep Gonzalez catheter clear of blood. Return to the emergency department for any blockage in the Gonzalez catheter. Disposition: 01 DISCHARGE HOME Condition: Stable Leodan Villatoro MD December 12, 2016 19:09
== END 2016-12-12 22:01 | disposition home or self-care (01) ==
LOC: NEPE 16:29
DX: T83.018D Breakdown (mechanical) of other urinary catheter, subsequent encounter (principal); R31.0 Gross hematuria; G82.20 Paraplegia, unspecified; Z89.511 Acquired absence of right leg below knee; Z79.01 Long term (current) use of anticoagulants
CPT/HCPCS: 51700

== ENCOUNTER 2016-12-15 13:45 | Observation (INO) | payer OTHER ==
[2016-12-15] VITALS (8 sets, daily range): BP systolic 105–194; BP diastolic 65–109; PULSE 80–90; RESP 16–18; TEMP 97.7–98.9; O2SAT 92–99
[~2016-12-15] VITALS: Ht 182.9 cm; Wt 125.4 kg
[~2016-12-15 13:45] MED LIST changes: -WARF-58 PO; -WARF-60 PO
--- NOTE | 2016-12-15 14:59 | PD ---
HPI Chief Complaint: Complaint Time Seen by Provider: 14:35 Travel History International Travel<30 days: No Contact w/Intl Traveler<30days: No Traveled to known affect area: No History of Present Illness HPI The patient is a 71-year-old male who presents to the emergency department for hematuria. The patient has a history of intracranial hemorrhage after an accident and then developed low clots in the lower extremities. The patient is paraplegic and is wheelchair-bound. The patient has an IVC filter in place, but still takes Coumadin. The patient has a chronic indwelling Gonzalez catheter, thinks that it got stuck on something in the hotel room where he is staying. The patient notes hematuria with visible blood clots and decreased urine output, possible obstruction. The patient was seen in emergency department 2 days ago for similar symptoms. The patient also complains of mild weeping of the left lower extremity secondary to edema which is chronic. The patient is followed at the [place] [facility], they referred him to the emergency department for further evaluation of the hematuria and possible clogged Gonzalez catheter. 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 SECONDARY TO INFECTION ) Social History Alcohol Use: No Tobacco Use: No (former) Substance Use: No Allergies-Medications (Allergen,Severity, Reaction): Coded Allergies: No Known Allergies (Unverified , 12/12/16) Reported Meds & Prescriptions Reported Meds & Active Scripts Active Levaquin (Levofloxacin) 750 Mg Tab 750 Mg PO DAILY Thalia-Colace (Sennosides-Docusate Sodium) 8.6-50 Mg Tab 1 Tab PO BID PRN Reported Warfarin 4 Mg Tab 4 Mg PO DAILY Potassium Chloride ER (Potassium Chloride) 20 Meq Tab 20 Meq PO DAILY Vitamin D-1000 (Cholecalciferol) 1,000 Unit Tab 1,000 Units PO DAILY Ranitidine (Ranitidine HCl) 150 Mg Tab 150 Mg PO DAILY Lasix (Furosemide) 40 Mg Tab 40 Mg PO DAILY Baclofen 10 Mg Tab 10 Mg PO TID Review of Systems Except as stated in HPI: all other systems reviewed are Neg General / Constitutional: No: Fever HENT: No: Lightheadedness Cardiovascular: No: Chest Pain or Discomfort Respiratory: No: Shortness of Breath Gastrointestinal: No: Nausea, Vomiting Genitourinary: Positive: Hematuria, Other (as noted in the history of present illness) Musculoskeletal: Positive: Edema Physical Exam Narrative GENERAL: Awake, alert, 71-year-old male who appears his stated age and is in no acute respiratory distress. SKIN: Focused skin assessment warm/dry. HEAD: Atraumatic. Normocephalic. EYES: No injection or drainage. ENT: No nasal bleeding or discharge. Mucous membranes pink and moist. NECK: Trachea midline. No JVD. CARDIOVASCULAR: Regular rate and rhythm. No murmur appreciated. RESPIRATORY: No accessory muscle use. Clear to auscultation. Breath sounds equal bilaterally. GASTROINTESTINAL: Abdomen soft, non-tender, nondistended. No rebound tenderness. Genitourinary: Gonzalez catheter placed with visible blood clots at the meatus with a Gonzalez catheter enters. 100 cc of red urine output with visible clots in the Gonzalez catheter bag. MUSCULOSKELETAL: Right BKA. Left lower extremity has edema with mild weeping, and protective padding and boot. NEUROLOGICAL: Awake and alert. No obvious cranial nerve deficits. Patient is able to move his upper extremities. PSYCHIATRIC: Appropriate mood and affect; insight and judgment normal. Data Data Last Documented VS Vital Signs Date Time Temp Pulse Resp B/P Pulse Ox O2 Delivery O2 Flow Rate FiO2 12/15/16 17:00 84 18 141/83 97 Room Air 12/15/16 13:47 98.9 Orders Urinalysis - C+S If Indicated (12/15/16 14:47) Complete Blood Count With Diff (12/15/16 14:47) Basic Metabolic Panel (Bmp) (12/15/16 14:47) Act Partial Throm Time (Ptt) (12/15/16 14:47) Prothrombin Time / Inr (Pt) (12/15/16 14:47) Bladder/Catheter Irrigation (12/15/16 14:47) Acetamin-Hydrocod 325-5 Mg ([address]-325 (12/15/16 16:00) Consult Urology (12/15/16 ) ^ Continuous Bladder Irrig - C (12/15/16 17:32) Admit Order (Ed Use Only) (12/15/16 17:48) Labs Laboratory Tests Test 12/15/16 14:58 White Blood Count 9.1 TH/MM3 Red Blood Count 5.39 MIL/MM3 Hemoglobin 12.2 GM/DL Hematocrit 39.1 % Mean Corpuscular Volume 72.7 FL Mean Corpuscular Hemoglobin 22.7 PG Mean Corpuscular Hemoglobin 31.2 % Concent Red Cell Distribution Width 20.1 % Platelet Count 221 TH/MM3 Mean Platelet Volume 8.3 FL Neutrophils (%) (Auto) 60.1 % Lymphocytes (%) (Auto) 26.8 % Monocytes (%) (Auto) 10.6 % Eosinophils (%) (Auto) 2.0 % Basophils (%) (Auto) 0.5 % Neutrophils # (Auto) 5.4 TH/MM3 Lymphocytes # (Auto) 2.4 TH/MM3 Monocytes # (Auto) 1.0 TH/MM3 Eosinophils # (Auto) 0.2 TH/MM3 Basophils # (Auto) 0.0 TH/MM3 CBC Comment AUTO DIFF Differential Total Cells 100 Counted Neutrophils % (Manual) 64 % Band Neutrophils % 1 % Lymphocytes % 19 % Monocytes % 8 % Eosinophils % 4 % Basophils % 1 % Neutrophils # (Manual) 6.2 TH/MM3 Metamyelocytes 1 % Myelocytes 2 % Differential Comment FINAL DIFF MANUAL Platelet Estimate NORMAL Platelet Morphology Comment NORMAL Ovalocytes 1+ Prothrombin Time 15.3 SEC Prothromb Time International 1.4 RATIO Ratio Activated Partial 30.9 SEC Thromboplast Time Sodium Level 141 MEQ/L Potassium Level 4.0 MEQ/L Chloride Level 104 MEQ/L Carbon Dioxide Level 29.9 MEQ/L Anion Gap 7 MEQ/L Blood Urea Nitrogen 12 MG/DL Creatinine 0.83 MG/DL Estimat Glomerular Filtration 92 ML/MIN Rate Random Glucose 118 MG/DL Calcium Level 9.4 MG/DL MDM Medical Decision Making Medical Screen Exam Complete: Yes Emergency Medical Condition: Yes Medical Record Reviewed: Yes Interpretation(s) Laboratory Tests Test 12/15/16 14:58 White Blood Count 9.1 TH/MM3 Red Blood Count 5.39 MIL/MM3 Hemoglobin 12.2 GM/DL Hematocrit 39.1 % Mean Corpuscular Volume 72.7 FL Mean Corpuscular Hemoglobin 22.7 PG Mean Corpuscular Hemoglobin 31.2 % Concent Red Cell Distribution Width 20.1 % Platelet Count 221 TH/MM3 Mean Platelet Volume 8.3 FL Neutrophils (%) (Auto) 60.1 % Lymphocytes (%) (Auto) 26.8 % Monocytes (%) (Auto) 10.6 % Eosinophils (%) (Auto) 2.0 % Basophils (%) (Auto) 0.5 % Neutrophils # (Auto) 5.4 TH/MM3 Lymphocytes # (Auto) 2.4 TH/MM3 Monocytes # (Auto) 1.0 TH/MM3 Eosinophils # (Auto) 0.2 TH/MM3 Basophils # (Auto) 0.0 TH/MM3 CBC Comment AUTO DIFF Differential Total Cells 100 Counted Neutrophils % (Manual) 64 % Band Neutrophils % 1 % Lymphocytes % 19 % Monocytes % 8 % Eosinophils % 4 % Basophils % 1 % Neutrophils # (Manual) 6.2 TH/MM3 Metamyelocytes 1 % Myelocytes 2 % Differential Comment FINAL DIFF MANUAL Platelet Estimate NORMAL Platelet Morphology Comment NORMAL Ovalocytes 1+ Prothrombin Time 15.3 SEC Prothromb Time International 1.4 RATIO Ratio Activated Partial 30.9 SEC Thromboplast Time Sodium Level 141 MEQ/L Potassium Level 4.0 MEQ/L Chloride Level 104 MEQ/L Carbon Dioxide Level 29.9 MEQ/L Anion Gap 7 MEQ/L Blood Urea Nitrogen 12 MG/DL Creatinine 0.83 MG/DL Estimat Glomerular Filtration 92 ML/MIN Rate Random Glucose 118 MG/DL Calcium Level 9.4 MG/DL Differential Diagnosis Differential diagnosis includes coagulopathy, elevated INR, Coumadin toxicity, anemia, Gonzalez catheter malfunction, urethral tear, bladder cancer. Narrative Course IV was established, labs are drawn and sent, and the patient was placed on cardiac telemetry monitoring and continuous pulse oximetry monitoring. Nursing staff was unable to irrigate the patient's Gonzalez catheter. Therefore, Gonzalez catheter was changed out, I personally placed a larger Gonzalez catheter, 20 Sinhala , with significant hematuria multiple blood clots. The patient's Gonzalez catheter was irrigated with 2 L of fluid, however, there was blood with several clots removed, however, the patient continued to have bloody urine output which appear to be from an active bleed. He also had a small amount of blood from around the urethra at the insertion site of the Gonzalez catheter. The patient is anticoagulated, however, INR is only 1.4. Hemoglobin is normal. However, patient appears to have continuous bleed, therefore, urology was called at 5:18 PM. I discussed the patient Dr. Carter who recommends 23 hour observation to the medicine team with continuous irrigation to prevent re-clotting of the Gonzalez catheter. Therefore, [facility] were paged for 23 hour observation and a routine consult was placed to Dr. Carter. Physician Communication Physician Communication [facility] were paged for 23 hour observation. I discussed the patient with Dr. Finley who agrees with 23 hour observation. Diagnosis Primary Impression: Hematuria Additional Impression: Obstructive uropathy Admitting Information Admitting Physician Requests: Observation Condition: Stable Fred Jose MD December 15, 2016 14:59
[2016-12-15 15:17] LABS: AUTOMATED NEUTROPHIL # 5.4 TH/MM3 (1.8-7.7); BASOPHIL % 0.5 % (0.0-2.0); EOSINOPHIL # 0.2 TH/MM3 (0-0.4); HEMATOCRIT 39.1 % (39.0-51.0); LYMPH % 26.8 % (9.0-44.0); LYMPHOCYTE # 2.4 TH/MM3 (1.0-4.8); MEAN CELL VOLUME 72.7 FL (80.0-100.0); MEAN CORPUSCULAR HEMOGLOBIN 22.7 PG (27.0-34.0); MEAN CORPUSCULAR HGB CONC 31.2 % (32.0-36.0); MONO % 10.6 % (0.0-8.0); NEUT % 60.1 % (16.0-70.0); PLATELET COUNT 221 TH/MM3 (150-450); RED BLOOD COUNT 5.39 MIL/MM3 (4.50-5.90); RED CELL DISTRIBUTION WIDTH 20.1 % (11.6-17.2); WHITE BLOOD COUNT 9.1 TH/MM3 (4.0-11.0)
[2016-12-15 15:24] LABS: HEMO FLAGS AUTO DIFF
[2016-12-15 15:28] LABS: APTT (PATIENT) 30.9 SEC (24.3-30.1); INTERNATIONAL NORMALIZED RATIO 1.4 RATIO; PROTHROMBIN TIME - PATIENT 15.3 SEC (9.8-11.6)
[2016-12-15 15:31] LABS: BICARBONATE 29.9 MEQ/L (21.0-32.0)
[2016-12-15] MEDS ORDERED: ACETAMINOPHEN/HYDROcodone 325 MG/5 MG TAB PO ONE (16:00)
[2016-12-15 16:38] LABS: BANDS 1 % (0-6); BASOPHILS 1 % (0-2); EOSINOPHILS 4 % (0-4); METAMYELOCYTES 1 % (0-1); MYELOCYTES 2 % (0-0); NEUTROPHIL # MANUAL DIFF 6.2 TH/MM3 (1.8-7.7); OVALOCYTES 1+ (NORMAL); PLATELET ESTIMATE SMEAR NORMAL (NORMAL); PLATELET MORPHOLOGY NORMAL (NORMAL); POLYS (SEG NEUTROPHILS) 64 % (16-70); SCAN/DIFF FINAL DIFF MANUAL; WBC DIFF SAMPLE 100
--- NOTE | 2016-12-15 18:10 | HHI.HP ---
[facility] Service [facility] Primary Care Physician Jose [facility] Admission Diagnosis hematuria, obstructive uropathy Diagnoses: Chief Complaint: Hematuria Travel History International Travel<30 Days: No Contact w/Intl Traveler <30 Da: No Traveled to Known Affected Are: No History of Present Illness This is a pleasant 71 y/o Male who came to ER with Hematuria, he has history of Intracranial Hemorrhage, after an accident then developed DVT on lower extremities, he is paraplegic and wheelchair bound, he has an IVC filter in place but still takes Coumadin, has Chronic Indwelling Gonzalez cath, he is staying in a hotel room and thinks he got Stuck on something and after that noted Hematuria, with visible blood clots and decreased urine output, possible obstruction, he was seen already in this emergency department 2 days ago with similar symptoms, also complaint of some mild weeping of the left lower extremity secondary to edema which is chronic. The patient is followed at the [place] clinic, they referred him to the emergency department for further evaluation of the hematuria and possible clogged Gonzalez catheter. 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 Reported Medications Reported Meds & Active Scripts Active Levaquin (Levofloxacin) 750 Mg Tab 750 Mg PO DAILY Thalia-Colace (Sennosides-Docusate Sodium) 8.6-50 Mg Tab 1 Tab PO BID PRN Reported Warfarin 4 Mg Tab 4 Mg PO DAILY Potassium Chloride ER (Potassium Chloride) 20 Meq Tab 20 Meq PO DAILY Vitamin D-1000 (Cholecalciferol) 1,000 Unit Tab 1,000 Units PO DAILY Ranitidine (Ranitidine HCl) 150 Mg Tab 150 Mg PO DAILY Lasix (Furosemide) 40 Mg Tab 40 Mg PO DAILY Baclofen 10 Mg Tab 10 Mg PO TID Allergies: Coded Allergies: No Known Allergies (Unverified , 12/12/16) Active Ordered Medications Current Medications Medications (Trade) Dose Ordered Sig/Shirley Route Start Time Stop Time Status Last Admin (Lioresal) 10 mg TID PO 12/15/16 18:00 (Lasix) 40 mg DAILY PO 12/16/16 09:00 (Levaquin) 750 mg DAILY PO 12/16/16 09:00 (KCl) 20 meq DAILY PO 12/16/16 09:00 Famotidine 20 mg 20 mg DAILY PO 12/16/16 09:00 (NS 1000 ml Inj) 1,000 ml @ 100 mls/hr Q10H IV 12/15/16 19:00 (NS Flush) 2 ml UNSCH PRN IV FLUSH 12/15/16 18:15 (NS Flush) 2 ml BID IV FLUSH 12/15/16 21:00 (Tylenol) 650 mg Q4H PRN PO 12/15/16 18:15 (Zofran Inj) 4 mg Q6H PRN IVP 12/15/16 18:15 (Dulcolax Supp) 10 mg DAILY PRN RECTAL 12/15/16 18:15 (Colace) 100 mg Q12H PO 12/15/16 20:00 (Narcan Inj) 0.4 mg UNSCH PRN IV 12/15/16 18:15 Family History Asked and negative Social History denies any toxic habits. Physical Exam Vital Signs Vital Signs Date Time Temp Pulse Resp B/P Pulse Ox O2 Delivery O2 Flow Rate FiO2 12/15/16 17:00 84 18 141/83 97 Room Air 12/15/16 16:30 90 18 190/87 97 Room Air 12/15/16 13:47 98.9 88 194/109 96 Physical Exam GENERAL: No acute distress. SKIN: anterior foreleg with ulcer. HEAD: Atraumatic. Normocephalic. EYES: No injection or drainage. ENT: No nasal bleeding or discharge. Mucous membranes pink and moist. NECK: Trachea midline. No JVD. CARDIOVASCULAR: Regular rate and rhythm. No murmur appreciated. RESPIRATORY: No accessory muscle use. Clear to auscultation. Breath sounds equal bilaterally. GASTROINTESTINAL: Abdomen soft, non-tender, nondistended. No rebound tenderness. Genitourinary: Gonzalez catheter placed with visible blood clots at the meatus with a Gonzalez catheter enters. MUSCULOSKELETAL: Right BKA. Left lower extremity has edema and ulcer on anterior foreleg. Orthotics in place. NEUROLOGICAL: Awake and alert. No obvious cranial nerve deficits. Patient is able to move his upper extremities. PSYCHIATRIC: Appropriate mood and affect; insight and judgment normal. Laboratory Laboratory Tests Test 12/15/16 14:58 White Blood Count 9.1 Red Blood Count 5.39 Hemoglobin 12.2 Hematocrit 39.1 Mean Corpuscular Volume 72.7 Mean Corpuscular Hemoglobin 22.7 Mean Corpuscular Hemoglobin 31.2 Concent Red Cell Distribution Width 20.1 Platelet Count 221 Mean Platelet Volume 8.3 Neutrophils (%) (Auto) 60.1 Lymphocytes (%) (Auto) 26.8 Monocytes (%) (Auto) 10.6 Eosinophils (%) (Auto) 2.0 Basophils (%) (Auto) 0.5 Neutrophils # (Auto) 5.4 Lymphocytes # (Auto) 2.4 Monocytes # (Auto) 1.0 Eosinophils # (Auto) 0.2 Basophils # (Auto) 0.0 CBC Comment AUTO DIFF Differential Total Cells 100 Counted Neutrophils % (Manual) 64 Band Neutrophils % 1 Lymphocytes % 19 Monocytes % 8 Eosinophils % 4 Basophils % 1 Neutrophils # (Manual) 6.2 Metamyelocytes 1 Myelocytes 2 Differential Comment FINAL DIFF MANUAL Platelet Estimate NORMAL Platelet Morphology Comment NORMAL Ovalocytes 1+ Prothrombin Time 15.3 Prothromb Time International 1.4 Ratio Activated Partial 30.9 Thromboplast Time Sodium Level 141 Potassium Level 4.0 Chloride Level 104 Carbon Dioxide Level 29.9 Anion Gap 7 Blood Urea Nitrogen 12 Creatinine 0.83 Estimat Glomerular Filtration 92 Rate Random Glucose 118 Calcium Level 9.4 Result Diagram: 12/15/16 1458 12/15/16 1458 Imaging No Imaging studies performed. Assessment and Plan Assessment and Plan 1. Hematuria and Obstructive Uropathy, on Gonzalez cath irrigation Urology specialist consulted. Cardiac monitoring Gonzalez cath changed, Irrigated. Hemoglobin stable continue H and H and transfuse as needed 2. Chronic anticoagulation with Coumadin INR 1.4 subtherapeutic 3. Medical non compliance. 4. AAA status post Abdominal Aortic Aneurysm Repair 5. CAD status post PCI and stent placement x 1 6. CVA 2005 7. DM II continue sliding scale and asked for Hemoglobin A1C 8. Spinal cord Injury with paraplegia 9. Seborrheic Dermatitis on Dexamethasone ointment 10. left leg ulcer asked for mgmt specialist 11. Past history of tobacco dependence on Bronchodilator, Mucolytic and incentive spirometry. DVT prophylaxis with SCDs contraindicated Chemotherapy due to hemorrhage Discussed in the room with patient and his Daughter miss Yenny Duval all questions answered to the best of my abilities. Code Status Full code Discussed Condition With Patient and his Daughter Miss Yenny Duval Micky Suresh MD December 15, 2016 18:10
[2016-12-15] MEDS ORDERED: ACETAMINOPHEN 325 MG TAB PO PRN (18:15)
[2016-12-15] MEDS ORDERED: SODIUM CHLORIDE 0.9% FLUSH 10 ML FLUSH IV FLUSH PRN (18:15)
[2016-12-15] MEDS ORDERED: BISACODYL 10 MG SUPP RECTAL PRN (18:15)
[2016-12-15] MEDS ORDERED: ONDANSETRON HCL 4 MG/2 ML VIAL IVP PRN (18:15)
[2016-12-15] MEDS ORDERED: NALOXONE HCL 0.4 MG/ML AMP IV PRN (18:15)
[2016-12-15] MEDS: BACLOFEN 10 MG TAB PO SCH (18:52)
[2016-12-15] MEDS: SODIUM CHLOR 0.9% 1000 ML INJ 1,000 ML IV SCH (19:00)
--- NOTE | 2016-12-15 19:09 | RADRPT ---
EXAM DATE/TIME: 12/15/2016 18:49 [facility] COMPARISON: No previous studies available for comparison. INDICATIONS : Evaluate for pneumonia. Shortness of breath and cough. MEDICAL HISTORY : None. SURGICAL HISTORY : None. ENCOUNTER: Initial ACUITY: 1 month PAIN SCORE: 0/10 LOCATION: Bilateral chest FINDINGS: A single view of the chest demonstrates the lungs to be symmetrically aerated without evidence of mas s, infiltrate or effusion. The cardiomediastinal contours are unremarkable. Osseous structures are intact. CONCLUSION: No acute cardiopulmonary disease demonstrated. Jairo Quinn MD on December 15, 2016 at 19:07 Board Certified Radiologist. This report was verified electronically.
[2016-12-15 19:30] LABS: FREE T4 1.11 NG/DL (0.76-1.46); HDL CHOLESTEROL 57.2 MG/DL (40.0-60.0); LDL CHOLESTEROL 127 MG/DL (0-99)
[2016-12-15] MEDS: RESP: ALBUTEROL 2.5 MG/IPRATROPIUM 0.5 MG NEB (SCH) NEB (19:30)
[2016-12-15] MEDS: DOCUSATE SODIUM 100 MG CAP PO SCH (20:00)
[2016-12-15 20:08] LABS: HEMATOCRIT 33.6 % (39.0-51.0)
[2016-12-15] MEDS: guaiFENesin E.R. 600 MG TAB PO SCH (21:00)
[2016-12-15] MEDS: HYDROCORTISONE 1% OINT 30 GM TUBE TOPICAL SCH (21:00)
[2016-12-15] MEDS: SODIUM CHLORIDE 0.9% FLUSH 10 ML FLUSH IV FLUSH SCH (21:44)
[2016-12-16] VITALS (8 sets, daily range): BP systolic 101–175; BP diastolic 57–79; PULSE 70–85; RESP 16–19; TEMP 96.6–97.5; O2SAT 93–100
[2016-12-16] MEDS: RESP: ALBUTEROL 2.5 MG/IPRATROPIUM 0.5 MG NEB (SCH) NEB ×4 (03:26→19:59)
[2016-12-16] MEDS: HYDROCORTISONE 1% OINT 30 GM TUBE TOPICAL SCH ×3 (04:37→23:30)
[2016-12-16 07:41] LABS: AUTOMATED NEUTROPHIL # 4.7 TH/MM3 (1.8-7.7); BASOPHIL % 0.6 % (0.0-2.0); EOSINOPHIL # 0.1 TH/MM3 (0-0.4); EOSINOPHIL % 1.1 % (0.0-4.0); HEMATOCRIT 30.9 % (39.0-51.0); LYMPH % 18.5 % (9.0-44.0); LYMPHOCYTE # 1.3 TH/MM3 (1.0-4.8); MEAN CELL VOLUME 72.9 FL (80.0-100.0); MEAN CORPUSCULAR HEMOGLOBIN 22.8 PG (27.0-34.0); MEAN CORPUSCULAR HGB CONC 31.3 % (32.0-36.0); MONO % 13.8 % (0.0-8.0); PLATELET COUNT 159 TH/MM3 (150-450); RED BLOOD COUNT 4.25 MIL/MM3 (4.50-5.90); RED CELL DISTRIBUTION WIDTH 19.8 % (11.6-17.2); WHITE BLOOD COUNT 7.1 TH/MM3 (4.0-11.0)
[2016-12-16 07:46] LABS: HEMO FLAGS AUTO DIFF
[2016-12-16 07:58] LABS: BICARBONATE 28.3 MEQ/L (21.0-32.0)
--- NOTE | 2016-12-16 08:54 | HHI.PR ---
Subjective Remarks This is a pleasant 71 y/o Male who came to ER with Hematuria, he has history of Intracranial Hemorrhage, after an accident then developed DVT on lower extremities, he is paraplegic and wheelchair bound, he has an IVC filter in place but still takes Coumadin, has Chronic Indwelling Gonzalez cath, he is staying in a hotel room and thinks he got Stuck on something and after that noted Hematuria, with visible blood clots and decreased urine output, possible obstruction, he was seen already in this emergency department 2 days ago with similar symptoms, also complaint of some mild weeping of the left lower extremity secondary to edema which is chronic. The [facility], they referred him to the emergency department for further evaluation of the hematuria and possible clogged Gonzalez catheter. seen in emergency room in the presence of his Daughter Miss Yenny Duval 12/16: Seen in his bedroom and discussed with nurse Miss Holt, no nausea, vomit or diarrhea, asking for manual disimpaction he had large BM today, and then another one, no need for disimpaction, Objective Vital Signs Date Time Temp Pulse Resp B/P Pulse Ox O2 Delivery O2 Flow Rate FiO2 12/16/16 04:00 97.5 82 18 101/64 94 12/16/16 00:00 97.5 79 19 106/61 93 12/15/16 21:30 80 12/15/16 21:10 97.7 88 18 105/65 94 12/15/16 20:40 75 16 124/76 94 12/15/16 19:31 99 12/15/16 19:26 98.4 84 16 120/71 92 12/15/16 17:00 84 18 141/83 97 Room Air 12/15/16 16:30 90 18 190/87 97 Room Air 12/15/16 13:47 98.9 88 194/109 96 I/O 12/15/16 12/15/16 12/15/16 12/16/16 12/16/16 12/16/16 07:00 15:00 23:00 07:00 15:00 23:00 Intake Total 240 ml 820 ml Output Total 2600 ml 1350 ml Balance -2360 ml -530 ml Intake Oral 240 ml IV Total 820 ml Output Urine Total 2600 ml 1350 ml # Voids 0 # Bowel Movements 1 Result Diagram: 12/16/1618 12/16/16 0618 Imaging Last Impressions Chest X-Ray 12/15/16 0000 Signed Impressions: Service Date/Time: Thursday, December 15, 2016 18:49 - CONCLUSION: No acute cardiopulmonary disease demonstrated. Jairo Quinn MD Procedures No procedures performed. Other Results Laboratory Tests Test 12/15/16 12/16/16 14:58 06:18 Differential Total Cells 100 Counted Neutrophils % (Manual) 64 % Band Neutrophils % 1 % Lymphocytes % 19 % Monocytes % 8 % Eosinophils % 4 % Basophils % 1 % Neutrophils # (Manual) 6.2 TH/MM3 Metamyelocytes 1 % Myelocytes 2 % Differential Comment FINAL DIFF MANUAL Platelet Estimate NORMAL Platelet Morphology Comment NORMAL Ovalocytes 1+ Prothrombin Time 15.3 SEC Prothromb Time International 1.4 RATIO Ratio Activated Partial 30.9 SEC Thromboplast Time Triglycerides Level 185 MG/DL Cholesterol Level 221 MG/DL LDL Cholesterol 127 MG/DL HDL Cholesterol 57.2 MG/DL Cholesterol/HDL Ratio 3.86 RATIO Free Thyroxine 1.11 NG/DL Thyroid Stimulating Hormone 4.430 uIU/ML 3rd Gen White Blood Count 7.1 TH/MM3 Red Blood Count 4.25 MIL/MM3 Hemoglobin 9.7 GM/DL Hematocrit 30.9 % Mean Corpuscular Volume 72.9 FL Mean Corpuscular Hemoglobin 22.8 PG Mean Corpuscular Hemoglobin 31.3 % Concent Red Cell Distribution Width 19.8 % Platelet Count 159 TH/MM3 Mean Platelet Volume 8.7 FL Neutrophils (%) (Auto) 66.0 % Lymphocytes (%) (Auto) 18.5 % Monocytes (%) (Auto) 13.8 % Eosinophils (%) (Auto) 1.1 % Basophils (%) (Auto) 0.6 % Neutrophils # (Auto) 4.7 TH/MM3 Lymphocytes # (Auto) 1.3 TH/MM3 Monocytes # (Auto) 1.0 TH/MM3 Eosinophils # (Auto) 0.1 TH/MM3 Basophils # (Auto) 0.0 TH/MM3 CBC Comment AUTO DIFF Sodium Level 140 MEQ/L Potassium Level 4.0 MEQ/L Chloride Level 104 MEQ/L Carbon Dioxide Level 28.3 MEQ/L Anion Gap 8 MEQ/L Blood Urea Nitrogen 14 MG/DL Creatinine 0.93 MG/DL Estimat Glomerular Filtration 80 ML/MIN Rate Random Glucose 120 MG/DL Calcium Level 8.3 MG/DL Objective Remarks GENERAL: No acute distress. SKIN: anterior foreleg with ulcer. HEAD: Atraumatic. Normocephalic. EYES: No injection or drainage. ENT: No nasal bleeding or discharge. Mucous membranes pink and moist. NECK: Trachea midline. No JVD. CARDIOVASCULAR: Regular rate and rhythm. No murmur appreciated. RESPIRATORY: No accessory muscle use. Clear to auscultation. Breath sounds equal bilaterally. GASTROINTESTINAL: Abdomen soft, non-tender, nondistended. No rebound tenderness. Genitourinary: Gonzalez catheter placed with visible blood clots at the meatus with a Gonzalez catheter enters. MUSCULOSKELETAL: Right BKA. Left lower extremity has edema and ulcer on anterior foreleg. Orthotics in place. NEUROLOGICAL: Awake and alert. No obvious cranial nerve deficits. Patient is able to move his upper extremities. PSYCHIATRIC: Appropriate mood and affect; insight and judgment normal. Medications and IVs Current Medications Medications (Trade) Dose Ordered Sig/Shirley Route Start Time Stop Time Status Last Admin (Lioresal) 10 mg TID PO 12/15/16 18:00 12/15/16 18:52 (Lasix) 40 mg DAILY PO 12/16/16 09:00 (Levaquin) 750 mg DAILY PO 12/16/16 09:00 (KCl) 20 meq DAILY PO 12/16/16 09:00 Famotidine 20 mg 20 mg DAILY PO 12/16/16 09:00 (NS 1000 ml Inj) 1,000 ml @ 100 mls/hr Q10H IV 12/15/16 19:00 12/15/16 19:00 (NS Flush) 2 ml UNSCH PRN IV FLUSH 12/15/16 18:15 (NS Flush) 2 ml BID IV FLUSH 12/15/16 21:00 12/15/16 21:44 (Tylenol) 650 mg Q4H PRN PO 12/15/16 18:15 (Zofran Inj) 4 mg Q6H PRN IVP 12/15/16 18:15 (Dulcolax Supp) 10 mg DAILY PRN RECTAL 12/15/16 18:15 12/16/16 05:54 (Colace) 100 mg Q12H PO 12/15/16 20:00 (Narcan Inj) 0.4 mg UNSCH PRN IV 12/15/16 18:15 (Mucinex Er) 600 mg BID PO 12/15/16 21:00 (Nutracort 1% Oint) 1 applic BID TOPICAL 12/15/16 21:00 12/16/16 04:37 A/P Assessment and Plan 1. Hematuria secondary to Gonzalez trauma, in a patient with Neurogenic Bladder, seen by Urology specialist recommended to continue Bladder irrigation and discharge once improved. 2. Anemia on acute blood loss Hemoglobin 9.7 stable continue monitoring. 3. Medical non compliance. 4. AAA status post Abdominal Aortic Aneurysm Repair 5. CAD status post PCI and stent placement x 1 6. CVA 2005 7. DM II continue sliding scale and asked for Hemoglobin A1C 8. Spinal cord Injury with paraplegia 9. Seborrheic Dermatitis on Dexamethasone ointment 10. left leg ulcer asked for air traffic control specialist 11. Past history of tobacco dependence on Bronchodilator, Mucolytic and incentive spirometry. 12. Chronic anticoagulation with Coumadin INR 1.4 subtherapeutic, on hold due to Hemorrhage. DVT prophylaxis with SCDs contraindicated Chemotherapy due to hemorrhage Code Status Full code Discussed Condition With With patient and nurse Miss Holt. Discharge Planning Once improved Hematuria Micky Suresh MD December 16, 2016 08:54
[2016-12-16 08:59] LABS: OVALOCYTES 1+ (NORMAL); PLATELET ESTIMATE SMEAR NORMAL (NORMAL); PLATELET MORPHOLOGY NORMAL (NORMAL); SCAN/DIFF AUTO DIFF CONFIRMED
[2016-12-16] MEDS: SODIUM CHLORIDE 0.9% FLUSH 10 ML FLUSH IV FLUSH SCH ×2 (09:00→20:15)
[2016-12-16] MEDS ORDERED: FAMOTIDINE 20 MG TAB PO SCH (09:00)
[2016-12-16] MEDS: DOCUSATE SODIUM 100 MG CAP PO SCH ×2 (09:18→20:15)
[2016-12-16] MEDS: POTASSIUM CHLORIDE 20 MEQ CONTROLLED RELEASE TAB PO SCH (09:18)
[2016-12-16] MEDS: guaiFENesin E.R. 600 MG TAB PO SCH ×2 (09:19→20:14)
[2016-12-16] MEDS: FUROSEMIDE 40 MG TAB PO SCH (09:19)
[2016-12-16] MEDS: BACLOFEN 10 MG TAB PO SCH ×3 (09:19→17:34)
[2016-12-16] MEDS: LEVOFLOXACIN 750 MG TAB PO SCH (09:19)
[2016-12-16] MEDS: SODIUM CHLOR 0.9% 1000 ML INJ 1,000 ML IV SCH ×3 (09:20→15:16)
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
[2016-12-16 13:35] LABS: HEMOGLOBIN A1a 1.2 %; HEMOGLOBIN A1b 0.9 %; HEMOGLOBIN Ao 85.8 %; HEMOGLOBIN F 0.9 %; HEMOGLOBIN LA1C 1.7 %; HEMOGLOBIN P3 4.9 %
[2016-12-16 17:08] LABS: BLOOD, URINE LARGE (NEG); GLUCOSE,URINE NEG (NEG); KETONE, URINE NEG (NEG); NITRITE,URINE NEG (NEG)
[2016-12-16 17:09] LABS: COMMENT (UR) CATH-CULTURE IND; CULTURE IF INDICATED CATH CULTURE IND; URINE COLOR RED (YELLW/STRAW)
[2016-12-16] MEDS: FAMOTIDINE 20 MG TAB PO SCH (20:14)
[2016-12-17] VITALS (8 sets, daily range): BP systolic 97–132; BP diastolic 56–75; PULSE 63–81; RESP 18–20; TEMP 95–97.3; O2SAT 95–96
[2016-12-17] MEDS: SODIUM CHLOR 0.9% 1000 ML INJ 1,000 ML IV SCH ×3 (01:00→22:39)
[2016-12-17] MEDS: RESP: ALBUTEROL 2.5 MG/IPRATROPIUM 0.5 MG NEB (SCH) NEB ×4 (03:38→20:09)
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
[2016-12-17] MEDS: FAMOTIDINE 20 MG TAB PO SCH ×2 (09:24→19:24)
[2016-12-17] MEDS: POTASSIUM CHLORIDE 20 MEQ CONTROLLED RELEASE TAB PO SCH (09:24)
[2016-12-17] MEDS: BACLOFEN 10 MG TAB PO SCH ×3 (09:24→18:21)
[2016-12-17] MEDS: DOCUSATE SODIUM 100 MG CAP PO SCH ×2 (09:24→19:24)
[2016-12-17] MEDS: guaiFENesin E.R. 600 MG TAB PO SCH ×2 (09:24→19:24)
[2016-12-17] MEDS: LEVOFLOXACIN 750 MG TAB PO SCH (09:24)
[2016-12-17] MEDS: FUROSEMIDE 40 MG TAB PO SCH (09:24)
[2016-12-17] MEDS: SODIUM CHLORIDE 0.9% FLUSH 10 ML FLUSH IV FLUSH SCH ×2 (09:26→21:00)
[2016-12-17] MEDS: HYDROCORTISONE 1% OINT 30 GM TUBE TOPICAL SCH ×2 (09:27→19:51)
[2016-12-17] MEDS ORDERED: cefTRIAXone INJ 1,000 MG in SODIUM CHLORIDE 0.9% INJ 100 ML IV SCH (12:00)
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
[2016-12-18] VITALS: BP 99/52; PULSE 75; RESP 20; TEMP 97.7; O2SAT 95
[2016-12-18 04:00] VITALS: BP 127/68; PULSE 80; RESP 18; TEMP 96.5; O2SAT 97
[2016-12-18] MEDS: RESP: ALBUTEROL 2.5 MG/IPRATROPIUM 0.5 MG NEB (SCH) NEB ×2 (04:32→11:16)
[2016-12-18 07:57] VITALS: BP 107/58; PULSE 74; RESP 20; TEMP 96.5; O2SAT 97
[2016-12-18] MEDS ORDERED: ASPI81TA11 PO (09:08)
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
[2016-12-18] MEDS: guaiFENesin E.R. 600 MG TAB PO SCH (09:37)
[2016-12-18] MEDS: LEVOFLOXACIN 750 MG TAB PO SCH (09:37)
[2016-12-18] MEDS: FAMOTIDINE 20 MG TAB PO SCH (09:37)
[2016-12-18] MEDS: POTASSIUM CHLORIDE 20 MEQ CONTROLLED RELEASE TAB PO SCH (09:37)
[2016-12-18] MEDS: FUROSEMIDE 40 MG TAB PO SCH (09:37)
[2016-12-18] MEDS: DOCUSATE SODIUM 100 MG CAP PO SCH (09:37)
[2016-12-18] MEDS: BACLOFEN 10 MG TAB PO SCH (09:37)
== END 2016-12-18 12:44 | disposition home or self-care (01) ==
LOC: NEPE 13:45 → NEDA 17:49 → HOCA 20:44
PROVIDERS: ADMIT Hospitalist; ATTEND Hospitalist
DX: T83.83XA Hemorrhage due to genitourinary prosthetic devices, implants and grafts, initial encounter (principal); R31.0 Gross hematuria; N13.9 Obstructive and reflux uropathy, unspecified; N31.9 Neuromuscular dysfunction of bladder, unspecified; I25.10 Atherosclerotic heart disease of native coronary artery without angina pectoris; E11.622 Type 2 diabetes mellitus with other skin ulcer; L21.9 Seborrheic dermatitis, unspecified; D62 Acute posthemorrhagic anemia; L97.929 Non-pressure chronic ulcer of unspecified part of left lower leg with unspecified severity; S34.109S Unspecified injury to unspecified level of lumbar spinal cord, sequela; Z99.3 Dependence on wheelchair; Z79.01 Long term (current) use of anticoagulants; Z86.718 Personal history of other venous thrombosis and embolism; Z95.828 Presence of other vascular implants and grafts; Z86.73 Personal history of transient ischemic attack (TIA), and cerebral infarction without residual deficits; Z89.511 Acquired absence of right leg below knee; Z87.891 Personal history of nicotine dependence; Z95.5 Presence of coronary angioplasty implant and graft; Z91.19 Patient's noncompliance with other medical treatment and regimen; Z86.79 Personal history of other diseases of the circulatory system
CPT/HCPCS: 51700; 71010; 80048; 80061; 81001; 82948; 83036; 84439; 84443; 85007; 85014; 85018; 85025; 85027; 85610; 85730; 87086; 94150; 94640; 99284; G0378; J0696; J7030

== ENCOUNTER 2017-01-12 17:29 | Emergency (ER) | payer OTHER ==
[~2017-01-12] VITALS: Ht 182.9 cm; Wt 118.0 kg
[~2017-01-12 17:29] MED LIST changes: +ASPI81TA11 PO; -LEVA750T PO; -WARF-20 PO
[2017-01-12 17:30] VITALS: BP 84/52; PULSE 70; RESP 15; TEMP 97.5; O2SAT 94
[2017-01-12] MEDS ORDERED: SODIUM CHLOR 0.9% 1000 ML INJ 1,000 ML IV ONE (18:00)
--- NOTE | 2017-01-12 18:14 | PD ---
HPI Chief Complaint: GI Complaint Time Seen by Provider: 17:43 Travel History International Travel<30 days: No Contact w/Intl Traveler<30days: No Traveled to known affect area: No History of Present Illness HPI This patient complains of diarrhea. He's had diarrhea for 13 days. He is not having vomiting or abdominal pain. Symptoms severity is moderate. He complains of some malaise. No syncope. No alleviating factors. He is motorized scooter bound and has had right leg amputation. He says his blood pressures usually run low around 100 systolic. 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 ) Social History Alcohol Use: No Tobacco Use: No (former) Substance Use: No Allergies-Medications (Allergen,Severity, Reaction): Coded Allergies: No Known Allergies (Unverified , 01/12/17) Reported Meds & Prescriptions Reported Meds & Active Scripts Active Flagyl (Metronidazole) 500 Mg Tab 500 Mg PO QID Reported Coumadin (Warfarin) 4 Mg Tab 4 Mg PO DAILY Potassium Chloride ER (Potassium Chloride) 20 Meq Tab 20 Meq PO DAILY Vitamin D-1000 (Cholecalciferol) 1,000 Unit Tab 1,000 Units PO DAILY Ranitidine (Ranitidine HCl) 150 Mg Tab 150 Mg PO DAILY Lasix (Furosemide) 40 Mg Tab 40 Mg PO DAILY Baclofen 10 Mg Tab 10 Mg PO TID Review of Systems General / Constitutional: No: Fever Eyes: No: Visual changes HENT: No: Headaches Cardiovascular: Positive: Edema, No: Chest Pain or Discomfort Respiratory: No: Shortness of Breath Gastrointestinal: Positive: Diarrhea, No: Abdominal Pain Genitourinary: No: Dysuria Musculoskeletal: Positive: Weakness, Edema, No: Pain Skin: No Rash Neurologic: Positive: Weakness Psychiatric: No: Depression Endocrine: No: Polydipsia Hematologic/Lymphatic: No: Easy Bruising Physical Exam Narrative GENERAL: Well-nourished, well-developed patient in no apparent distress. SKIN: Focused skin assessment reveals no rash and nodules. Skin is Warm and dry. HEAD: Atraumatic. Normocephalic. EYES: Pupils equal and round. No scleral icterus. No injection or drainage. ENT: No nasal bleeding or discharge. Mucous membranes pink and moist. NECK: Trachea midline. No JVD. CARDIOVASCULAR: Regular rate and rhythm. No murmur appreciated. RESPIRATORY: No accessory muscle use. Clear to auscultation. Breath sounds equal bilaterally. GASTROINTESTINAL: Abdomen soft, obese with prominent varicosities, nondistended. Hepatic and splenic margins not palpable. MUSCULOSKELETAL: Has had right leg amputation. Left leg is edematous throughout and the skin is thickened suggesting edema is chronic. There is a bit of clear serous weeping. NEUROLOGICAL: Awake and alert. No obvious cranial nerve deficits. Motor grossly within normal limits. Normal speech. PSYCHIATRIC: Appropriate mood and affect; insight and judgment normal. Data Data Last Documented VS Vital Signs Date Time Temp Pulse Resp B/P Pulse Ox O2 Delivery O2 Flow Rate FiO2 01/12/17 18:40 65 18 98/57 100 Room Air 01/12/17 17:30 97.5 Orders Iv Access Insert/Monitor (01/12/17 17:58) Complete Blood Count With Diff (01/12/17 17:58) Basic Metabolic Panel (Bmp) (01/12/17 17:58) Sodium Chlor 0.9% 1000 Ml Inj (Ns 1000 M (01/12/17 18:00) Enteric Path (Stool) (01/12/17 17:58) C Diff Toxin Pcr (01/12/17 17:58) Leather Repairer / Telemetry [email or web address] (01/12/17 17:58) Labs Laboratory Tests Test 01/12/17 18:05 White Blood Count 5.4 TH/MM3 Red Blood Count 4.96 MIL/MM3 Hemoglobin 10.8 GM/DL Hematocrit 35.6 % Mean Corpuscular Volume 71.8 FL Mean Corpuscular Hemoglobin 21.8 PG Mean Corpuscular Hemoglobin 30.3 % Concent Red Cell Distribution Width 19.7 % Platelet Count 276 TH/MM3 Mean Platelet Volume 7.9 FL Neutrophils (%) (Auto) 64.5 % Lymphocytes (%) (Auto) 20.2 % Monocytes (%) (Auto) 11.4 % Eosinophils (%) (Auto) 3.1 % Basophils (%) (Auto) 0.8 % Neutrophils # (Auto) 3.5 TH/MM3 Lymphocytes # (Auto) 1.1 TH/MM3 Monocytes # (Auto) 0.6 TH/MM3 Eosinophils # (Auto) 0.2 TH/MM3 Basophils # (Auto) 0.0 TH/MM3 CBC Comment DIFF FINAL Differential Comment Sodium Level 140 MEQ/L Potassium Level 3.9 MEQ/L Chloride Level 103 MEQ/L Carbon Dioxide Level 32.1 MEQ/L Anion Gap 5 MEQ/L Blood Urea Nitrogen 13 MG/DL Creatinine 0.81 MG/DL Estimat Glomerular Filtration 94 ML/MIN Rate Random Glucose 124 MG/DL Calcium Level 8.5 MG/DL MDM Medical Decision Making Medical Screen Exam Complete: Yes Emergency Medical Condition: Yes Medical Record Reviewed: Yes Differential Diagnosis C. difficile colitis, gastroenteritis, dehydration, hypovolemic state Narrative Course I have reviewed the patient's electronic medical record. Reviewed his discharge summary from his most recent admission 2 IVs placed I gave him 1 L normal saline IV given his presenting hypotension of 86 systolic CBC is normal Metabolic profile is normal Stool ordered for C. difficile PCR and stool culture Extended cardiac monitoring reveals sinus rhythm without ectopy No tachycardia present After half liter of normal saline his blood pressure is 100 systolic which is his normal I'm going to finish the liter out but I don't want to give him more because he has chronic left leg edema and is on Lasix Recommending he elevate the left leg and wear knee-high compression stocking I wrote him some empiric Flagyl [facility] to start with At this point I think he is at the best level of fluid status we can make him given the competing factors of diarrhea and left leg edema on diuretic He is at baseline blood pressure with no tachycardia and is understandably frustrated with the diarrhea but not acutely symptomatic I don't see an indication for hospital stay at this point Diagnosis Primary Impression: Diarrhea Qualified Code: A09 - Diarrhea of presumed infectious origin Additional Impression: Leg edema, left Additional Instructions: The patient was advised to follow up with their physician and return if they worsen. Start Flagyl treatment Elevate left leg and wear knee-high compression stocking Med/Other Pt SpecificInfo: Prescription(s) given Scripts Metronidazole (Flagyl)500 Mg [id number] Mg PO QID #28 TAB Ref 0 Prov:Meño Martini MD 01/12/17 Disposition: 01 DISCHARGE HOME Condition: Stable Meño Martini MD Jan 12, 2017 18:14
[2017-01-12 18:18] LABS: AUTOMATED NEUTROPHIL # 3.5 TH/MM3 (1.8-7.7); BASOPHIL % 0.8 % (0.0-2.0); EOSINOPHIL # 0.2 TH/MM3 (0-0.4); EOSINOPHIL % 3.1 % (0.0-4.0); HEMATOCRIT 35.6 % (39.0-51.0); HEMO FLAGS DIFF FINAL; LYMPH % 20.2 % (9.0-44.0); LYMPHOCYTE # 1.1 TH/MM3 (1.0-4.8); MEAN CELL VOLUME 71.8 FL (80.0-100.0); MEAN CORPUSCULAR HEMOGLOBIN 21.8 PG (27.0-34.0); MEAN CORPUSCULAR HGB CONC 30.3 % (32.0-36.0); MONO % 11.4 % (0.0-8.0); NEUT % 64.5 % (16.0-70.0); PLATELET COUNT 276 TH/MM3 (150-450); RED BLOOD COUNT 4.96 MIL/MM3 (4.50-5.90); RED CELL DISTRIBUTION WIDTH 19.7 % (11.6-17.2); WHITE BLOOD COUNT 5.4 TH/MM3 (4.0-11.0)
[2017-01-12] MEDS ORDERED: COUM4TAB PO (18:31)
[2017-01-12 18:40] VITALS: BP 98/57; PULSE 65; RESP 18; O2SAT 100
[2017-01-12 18:45] LABS: BICARBONATE 32.1 MEQ/L (21.0-32.0); POTASSIUM 3.9 MEQ/L (3.5-5.1)
[2017-01-12] MEDS ORDERED: METR-1 PO (18:52)
[2017-01-12 21:13] LABS: C. DIFF EPI 027 PRESUMPTIVE NEGATIVE (NEGATIVE)
[2017-01-12 22:42] LABS: C. DIFF TOXIN PCR POSITIVE (NEGATIVE)
== END 2017-01-12 21:01 | disposition home or self-care (01) ==
LOC: NEPC 17:29
DX: A09 Infectious gastroenteritis and colitis, unspecified (principal); R60.0 Localized edema; R53.81 Other malaise; E11.9 Type 2 diabetes mellitus without complications; Z79.01 Long term (current) use of anticoagulants; Z89.511 Acquired absence of right leg below knee; Z86.79 Personal history of other diseases of the circulatory system; Z87.448 Personal history of other diseases of urinary system; Z86.69 Personal history of other diseases of the nervous system and sense organs
CPT/HCPCS: 80048; 85025; 87493; 87506; 99283; J7030

== ENCOUNTER 2017-03-18 18:32 | Emergency (ER) | payer OTHER ==
[~2017-03-18] VITALS: Ht 182.9 cm; Wt 115.0 kg
[~2017-03-18 18:32] MED LIST changes: -ASPI81TA11 PO; +COUM4TAB PO; +METR-1 PO; -PERI8.6T PO
[2017-03-18 18:42] VITALS: BP 142/72; PULSE 62; RESP 20; TEMP 98.3; O2SAT 95
--- NOTE | 2017-03-18 18:46 | PD ---
HPI . diarrhea x 2 days Chief Complaint: GI Complaint Time Seen by Provider: 18:46 Travel History International Travel<30 days: No Contact w/Intl Traveler<30days: No Traveled to known affect area: No History of Present Illness HPI 71-year-old male with history of spinal cord injury who is bedbound here with complaints of diarrhea for 2 days. Patient says the diarrhea is explosive and uncontrollable. He was last seen here in early January for similar, and was found to have C. difficile. Patient was given a prescription for Flagyl, however upon further discussion he tells me that he had so much medication that he doesn 't know what he took an thinks he may not have taken it. In the interim, he was at a [facility] after discharge from this hospital in January. He says that his diarrhea had subsided, however he went home 2 Sundays ago and then suddenly developed diarrhea this past Sunday. He was apparently diarrhea free for approximately a week. His left leg is very edematous. This was also a problem that he had in the past. He reports that it's more swollen than usual. 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 ) Social History Alcohol Use: No Tobacco Use: No Substance Use: No Allergies-Medications (Allergen,Severity, Reaction): Coded Allergies: No Known Allergies (Unverified , 03/18/17) Reported Meds & Prescriptions Reported Meds & Active Scripts Active Flagyl (Metronidazole) 500 Mg Tab 500 Mg PO QID Reported Coumadin (Warfarin) 4 Mg Tab 4 Mg PO DAILY Potassium Chloride ER (Potassium Chloride) 20 Meq Tab 20 Meq PO DAILY Vitamin D-1000 (Cholecalciferol) 1,000 Unit Tab 1,000 Units PO DAILY Ranitidine (Ranitidine HCl) 150 Mg Tab 150 Mg PO DAILY Lasix (Furosemide) 40 Mg Tab 40 Mg PO DAILY Baclofen 10 Mg Tab 10 Mg PO TID Review of Systems General / Constitutional: No: Fever Eyes: No: Visual changes HENT: No: Headaches Cardiovascular: Positive: Edema, No: Chest Pain or Discomfort Respiratory: No: Shortness of Breath Gastrointestinal: Positive: Diarrhea, No: Abdominal Pain Genitourinary: No: Dysuria Musculoskeletal: No: Pain Skin: No Rash Neurologic: No: Weakness Psychiatric: No: Depression Endocrine: No: Polydipsia Hematologic/Lymphatic: No: Easy Bruising Physical Exam Narrative GENERAL: AAO x 3, no acute distress, Well-nourished, well-developed patient. SKIN: Warm and dry. No visible rashes or bruising. HEAD: Normocephalic and atraumatic. EYES: No scleral icterus. No injection or drainage. EOM intact, ENT: No nasal drainage noted. Mucous membranes pink. Airway patent. NECK: Supple, trachea midline. No JVD. CARDIOVASCULAR: Regular rate and rhythm without murmurs, gallops, or rubs. RESPIRATORY: Breath sounds equal bilaterally. No accessory muscle use. No rhonchi or rales. GASTROINTESTINAL: Abdomen soft, non-tender, nondistended. EXTREMITIES: No cyanosis. Significant edema to the LLE +2 pitting, pulses diminished BACK: No obvious deformity. NEURO: CN II-12 intact, food counter worker strength normal b/l, UE PSYCH: AAO x 3, normal affect. Data Data Last Documented VS Vital Signs Date Time Temp Pulse Resp B/P Pulse Ox O2 Delivery O2 Flow Rate FiO2 03/18/17 19:10 95 Room Air 03/18/17 18:42 98.3 62 20 142/72 Orders Complete Blood Count With Diff (03/18/17 18:53) Comprehensive Metabolic Panel (03/18/17 18:53) Lipase (03/18/17 18:53) Iv Access Insert/Monitor (03/18/17 18:53) Ecg Monitoring (03/18/17 18:53) Oximetry (03/18/17 18:53) Sodium Chloride 0.9% Flush (Ns Flush) (03/18/17 19:00) C Diff Toxin Pcr (03/18/17 18:53) Enteric Path (Stool) (03/18/17 18:53) ^ Other Nursing Orders (03/18/17 18:53) Us Leg Venous Doppler (03/18/17 18:59) Prothrombin Time / Inr (Pt) (03/18/17 20:39) Act Partial Throm Time (Ptt) (03/18/17 20:39) Labs Laboratory Tests Test 03/18/17 03/18/17 19:06 20:49 White Blood Count 7.8 TH/MM3 Red Blood Count 5.25 MIL/MM3 Hemoglobin 12.3 GM/DL Hematocrit 38.6 % Mean Corpuscular Volume 73.6 FL Mean Corpuscular Hemoglobin 23.4 PG Mean Corpuscular Hemoglobin 31.8 % Concent Red Cell Distribution Width 22.0 % Platelet Count 208 TH/MM3 Mean Platelet Volume 8.3 FL Neutrophils (%) (Auto) 66.2 % Lymphocytes (%) (Auto) 18.2 % Monocytes (%) (Auto) 12.9 % Eosinophils (%) (Auto) 2.1 % Basophils (%) (Auto) 0.6 % Neutrophils # (Auto) 5.1 TH/MM3 Lymphocytes # (Auto) 1.4 TH/MM3 Monocytes # (Auto) 1.0 TH/MM3 Eosinophils # (Auto) 0.2 TH/MM3 Basophils # (Auto) 0.0 TH/MM3 CBC Comment DIFF FINAL Differential Comment Sodium Level 139 MEQ/L Potassium Level 4.4 MEQ/L Chloride Level 103 MEQ/L Carbon Dioxide Level 29.9 MEQ/L Anion Gap 6 MEQ/L Blood Urea Nitrogen 13 MG/DL Creatinine 0.67 MG/DL Estimat Glomerular Filtration 117 ML/MIN Rate Random Glucose 95 MG/DL Calcium Level 8.4 MG/DL Total Bilirubin 0.3 MG/DL Aspartate Amino Transf 19 U/L (AST/SGOT) Alanine Aminotransferase 13 U/L (ALT/SGPT) Alkaline Phosphatase 61 U/L Total Protein 7.3 GM/DL Albumin 2.7 GM/DL Lipase 60 U/L Prothrombin Time 29.6 SEC Prothromb Time International 2.6 RATIO Ratio Activated Partial 38.7 SEC Thromboplast Time MDM Medical Decision Making Medical Screen Exam Complete: Yes Emergency Medical Condition: Yes Medical Record Reviewed: Yes Differential Diagnosis colitis, recurrent C diff, gastroenteritis, DVT, lymphedema Narrative Course 71-year-old male here with complaint of recurrent diarrhea. He did have C. difficile in January and was given medications. Me that he does not think he took those medications. He also has some significant edema to the left lower extremity. IV access obtained. Labs, venous Doppler of the lower extremity and stool samples have been ordered. Patient placed on contact precautions. I have called the lab and requested C. difficile test be expedited. I spoke with [facility]. Last Impressions Lower Extremity Ultrasound 03/18/17 8702 Signed Impressions: Service Date/Time: Saturday, March 18, 2017 19:31 - CONCLUSION: 1. Extensive deep venous thrombosis in the right femoral and popliteal veins. Occluded right common femoral artery. Jose Mott MD Patient found to have extensive DVT. He is on warfarin. Coags have been ordered. If patient is still experiencing DVT despite being anticoagulated on warfarin and therapeutic INR, he may need IVC filter placement. Discussed with Dr. Huber, apparently patient has IVC filter already in place. He did not mention this nor did I see it in the records. We will send him home with Flagyl and outpatient f/u for recheck of C diff toxin. I stressed [facility] I discussed with patient. He has some issues with transportation and case management will be speaking with him. Diagnosis Primary Impression: Diarrhea Qualified Code: A09 - Diarrhea of presumed infectious origin Additional Impression: DVT (deep venous thrombosis) Qualified Code: I82.502 - Chronic deep vein thrombosis (DVT) of left lower extremity, unspecified vein Patient Instructions: General Instructions Additional Instructions: [facility]. We are giving you a prescription for medication for your diarrhea. Please start taking this immediately. You will need to have labs rechecked to make sure that you are clear and free of infection from this diarrhea. [facility] Return to the ED for any worsening of your condition or symptoms. Med/Other Pt SpecificInfo: Prescription(s) given Scripts Metronidazole (Flagyl)500 Mg [id number] Mg PO QID #28 TAB Ref 0 Prov:Sultana Barrett MD 03/18/17 Disposition: 01 DISCHARGE HOME Condition: Stable Melissa Santos Mar 18, 2017 18:46
[2017-03-18] MEDS ORDERED: SODIUM CHLORIDE 0.9% FLUSH 10 ML FLUSH IVF PRN (19:00)
[2017-03-18 19:10] VITALS: O2SAT 95
[2017-03-18 19:15] LABS: AUTOMATED NEUTROPHIL # 5.1 TH/MM3 (1.8-7.7); BASOPHIL % 0.6 % (0.0-2.0); EOSINOPHIL # 0.2 TH/MM3 (0-0.4); EOSINOPHIL % 2.1 % (0.0-4.0); HEMATOCRIT 38.6 % (39.0-51.0); HEMO FLAGS DIFF FINAL; LYMPH % 18.2 % (9.0-44.0); LYMPHOCYTE # 1.4 TH/MM3 (1.0-4.8); MEAN CELL VOLUME 73.6 FL (80.0-100.0); MEAN CORPUSCULAR HEMOGLOBIN 23.4 PG (27.0-34.0); MEAN CORPUSCULAR HGB CONC 31.8 % (32.0-36.0); MONO % 12.9 % (0.0-8.0); NEUT % 66.2 % (16.0-70.0); PLATELET COUNT 208 TH/MM3 (150-450); RED BLOOD COUNT 5.25 MIL/MM3 (4.50-5.90); WHITE BLOOD COUNT 7.8 TH/MM3 (4.0-11.0)
[2017-03-18 19:32] LABS: ANION GAP 6 MEQ/L (5-15); AST (GOT) 19 U/L (15-37); BICARBONATE 29.9 MEQ/L (21.0-32.0); BLOOD UREA NITROGEN 13 MG/DL (7-18); CHLORIDE 103 MEQ/L (98-107); GLOMERULAR FILTRATION RATE 117 ML/MIN (>89); POTASSIUM 4.4 MEQ/L (3.5-5.1); SODIUM (NA) 139 MEQ/L (136-145)
[2017-03-18 19:36] LABS: ALKALINE PHOSPHATASE 61 U/L (45-117); ALT (GPT) 13 U/L (12-78); TOTAL BILIRUBIN ADULT 0.3 MG/DL (0.2-1.0)
--- NOTE | 2017-03-18 20:26 | RADRPT ---
EXAM DATE/TIME: 03/18/2017 19:31 [facility] COMPARISON: No previous studies available for comparison. INDICATIONS : Left leg swelling. MEDICAL HISTORY : Cerebrovascular accident. Diabetes. Abdominal aortic aneurysm. SURGICAL HISTORY : Coronary stent. Cardiac catheterization. AAA repair. Right BKA. ENCOUNTER: Initial ACUITY: 2 months PAIN SCORE: 7/10 LOCATION: Left leg. TECHNIQUE: Venous ultrasound of the leg was performed from the inguinal ligament to the proximal calf. Real-chato e, color Doppler and spectral tracing, compression and augmentation techniques were used. FINDINGS: The examination is positive for deep venous thrombosis the entire length of the right femoral vein an d popliteal vein. Posterior tibial and peroneal veins are not well visualized. The right common femor al artery also appears occluded. CONCLUSION: 1. Extensive deep venous thrombosis in the right femoral and popliteal veins. Occluded right common f emoral artery. Jose Mott MD on March 18, 2017 at 20:23 Board Certified Radiologist. This report was verified electronically.
[2017-03-18 21:27] LABS: APTT (PATIENT) 38.7 SEC (24.3-30.1); INTERNATIONAL NORMALIZED RATIO 2.6 RATIO; PROTHROMBIN TIME - PATIENT 29.6 SEC (9.8-11.6)
[2017-03-18] MEDS ORDERED: METR-1 PO (21:49)
[2017-03-18 23:16] LABS: C. DIFF EPI 027 PRESUMPTIVE NEGATIVE (NEGATIVE)
[2017-03-18 23:30] LABS: C. DIFF TOXIN PCR POSITIVE (NEGATIVE)
[2017-03-19 01:30] VITALS: BP 118/61; PULSE 66; RESP 16; O2SAT 95
[2017-03-19 04:56] VITALS: BP 113/59; PULSE 64; RESP 16; O2SAT 95
[2017-03-19 07:00] VITALS: BP 118/62; PULSE 64; RESP 16; TEMP 98; O2SAT 98
[2017-03-19 09:30] VITALS: BP 122/68
== END 2017-03-19 09:57 | disposition home or self-care (01) ==
LOC: NEPE 18:32 → NEPD 03-19 09:57
DX: A09 Infectious gastroenteritis and colitis, unspecified (principal); I82.502 Chronic embolism and thrombosis of unspecified deep veins of left lower extremity; E11.9 Type 2 diabetes mellitus without complications; Z79.01 Long term (current) use of anticoagulants; Z86.79 Personal history of other diseases of the circulatory system; Z86.69 Personal history of other diseases of the nervous system and sense organs; Z87.19 Personal history of other diseases of the digestive system
CPT/HCPCS: 80053; 83690; 85025; 85610; 85730; 87493; 87506; 93971